=== PATIENT | female | born 1985 | race Two or more races ===

== ENCOUNTER → 2020-08-18 15:29 | Outpatient (BNVA) | payer OTHER, SELFPAY | PROVIDERS: PCP Internal Medicine; Referring Provider Internal Medicine; Visit Provider Advanced Practice Midwife | DX: Z30.09 Encounter for other general counseling and advice on contraception (principal) | CPT/HCPCS: 99212 ==

== ENCOUNTER → 2020-09-09 13:22 | Outpatient (BNVA) | payer OTHER, SELFPAY | PROVIDERS: PCP Internal Medicine; Visit Provider Advanced Practice Midwife | DX: Z76.89 Persons encountering health services in other specified circumstances (principal) ==

== ENCOUNTER → 2020-09-24 15:05 | Outpatient (BNVA) | payer OTHER, SELFPAY | PROVIDERS: PCP Internal Medicine; Referring Provider Internal Medicine; Visit Provider Internal Medicine | DX: Z76.89 Persons encountering health services in other specified circumstances (principal) ==

== ENCOUNTER 2020-10-07 11:11 | Outpatient (REF) | payer OTHER, SELFPAY | END 2020-10-07 11:12 | disposition home or self-care (01) | LOC: HO.LAB 11:11 | PROVIDERS: Visit Provider Internal Medicine | DX: Z20.828 Contact with and (suspected) exposure to other viral communicable diseases (principal) | CPT/HCPCS: C9803; U0003 ==

== ENCOUNTER 2020-10-07 11:32 | Emergency (ER) | payer OTHER, SELFPAY ==
--- NOTE | 2020-10-07 11:51 | ED.GENADULT ---
HPI - General Adult General Chief complaint: General Medical Stated complaint: Covid symptoms Time Seen by Provider: 10/07/20 11:51 Source: patient Mode of arrival: ambulatory Limitations: no limitations History of Present Illness HPI narrative: just had COVID test at our drive [place] site, here because she is worried they have COVID MD complaint: body aches, nausea, exposed to COVID from family Onset (ago): week(s) (2) Severity: mild Quality: aching Pain Consistency: constant Relieving factors: none Exacerbating factors: none Associated symptoms: fever/chills, loss of appetite, malaise and nausea/vomiting Related Data Home Medications Medication Instructions Recorded Confirmed omeprazole 20 mg capsule,delayed 20 mg PO BID 08/26/20 09/24/20 release vitamin with calcium 1 tab PO BEDTIME 09/24/20 09/24/20 no.72-iron 27 mg-folic acid 1 mg tablet Previous Rx's Medication Instructions Recorded prenat.vits,carlin,[id number] 1 tab PO BEDTIME 30 Days #30 tab 08/26/20 ondansetron 4 mg PO Q8H PRN #20 tab 10/07/20 Allergies Allergy/AdvReac Type Severity Reaction Status Date / Time morphine [MORPHINE] Allergy Unknown HIVES Verified 09/24/20 15:14 oxycodone [OXYCODONE] Allergy Unknown HIVES Verified 09/24/20 15:14 Review of Systems Review of Systems: Constitutional : positive Fever, positive Chills, positive fatigue, positive Malaise ENT/Mouth : no sore throat, no runny nose Eyes: No Discharge Cardiovascular : No Chest Pain, No SOB Respiratory : No Cough, No Sputum Gastrointestinal : No Nausea, No Vomiting, No Diarrhea Genitourinary : No Dysuria, No Urinary Frequency Musculoskeletal : positive Myalgia Skin : No rash Neuro : No Headache PMFSH Past Medical History Attestation statement: The following information was validated with the patient. Medical History Depression Goiter History of gestational diabetes History of placenta abruption History of pre-eclampsia Subclinical hyperthyroidism Vitamin D deficiency Surgical History H/O shoulder surgery Family History Family History Father Heart attack HTN (hypertension) CVD (cardiovascular disease) Mother HTN (hypertension) Social History Social History Alcohol intake: current Alcohol intake frequency: a few times a month Smoking Status: Never smoker Advance Directives: No Advance Directives Information Provided: Yes Physical Exam Vital Signs: Appearance: Alert. Oriented X3. No acute distress. Eyes: Pupils equal, round and reactive to light. ENT: Pharynx normal. Neck: Normal inspection. Neck supple. CVS: Normal heart rate and rhythm. Pulses normal. Respiratory: No respiratory distress. Breath sounds normal. Abdomen: Soft and non-tender. Skin: Skin warm and dry. Normal skin color. Normal skin turgor. Extremities: No lower extremity edema. No calf ttp Neuro: Oriented X 3. No motor deficit. No sensory deficit. Medical Decision Making MDM Narrative Medical decision making narrative: 34 yo not toxic, no hypoxia clear lungs, just had COVID test given expectant course nausea medications and work note Discharge Plan Discharge Clinical Impression: Acute viral syndrome Patient Disposition: Home, Self-Care Instructions: Viral Syndrome (ED) Additional Instructions: return to ED for any worsening symptoms or concerns you were tested for COVID we will call you with results in 2 to 4 days, wear a mask, socially distance Prescriptions: New ondansetron 4 mg tablet,disintegrating 4 mg PO Q8H PRN (Reason: nausea and vomiting) Qty: 20 RF: 0 No Action prenat.vits,carlin,[id number] Tablet 1 tab PO BEDTIME 30 Days Qty: 30 RF: 11 Vitamin Plus Low Iron 27 mg iron- 1 mg tablet 1 tab PO BEDTIME RF: 0 omeprazole 20 mg capsule,delayed release(DR/EC) 20 mg PO BID RF: 0 Stand Alone Forms: Work/School Release
== END 2020-10-07 12:35 | disposition home or self-care (01) ==
PROVIDERS: Emergency Provider Emergency Medicine
DX: B34.9 Viral infection, unspecified (principal); M79.10 Myalgia, unspecified site; R11.0 Nausea; Z20.828 Contact with and (suspected) exposure to other viral communicable diseases
CPT/HCPCS: 99281; 99283

== ENCOUNTER → 2020-10-21 11:33 | Outpatient (BNVA) | payer OTHER, SELFPAY | PROVIDERS: PCP Internal Medicine; Visit Provider Advanced Practice Midwife ==

== ENCOUNTER 2020-11-20 15:02 | Outpatient (REF) | payer OTHER, SELFPAY ==
[2020-11-29 05:57] LABS: HPV mRNA E6/E7 rflx Not Detected (Not Detected)
== END 2020-11-20 15:03 | disposition home or self-care (01) ==
LOC: HO.LAB 15:02
PROVIDERS: PCP Internal Medicine; Visit Provider Advanced Practice Midwife
DX: Z01.419 Encounter for gynecological examination (general) (routine) without abnormal findings (principal); N89.8 Other specified noninflammatory disorders of vagina
CPT/HCPCS: 36415; 87624; 88142

== ENCOUNTER 2020-11-28 14:10 | Outpatient (REF) | payer OTHER, SELFPAY ==
--- NOTE | 2020-11-28 14:15 | XR_ITS ---
EXAMINATION: XR SHOULDER, RIGHT CLINICAL INFORMATION: Right shoulder pain. COMPARISON: None TECHNIQUE: AP external rotation, Grashey, scapular Y, and axillary views of the right shoulder. FINDINGS: No acute fracture or dislocation. No joint space narrowing or marginal osteophytes. Postsurgical change related to an orthopedic anchor within the anterior glenoid. No abnormal soft tissue calcification. XR/XR shoulder RT min 2V IMPRESSION: No acute osseous abnormality.
== END 2020-11-28 14:11 | disposition home or self-care (01) ==
LOC: HO.XRAY 14:10
PROVIDERS: PCP Internal Medicine; Visit Provider Physician Assistant
DX: M75.81 Other shoulder lesions, right shoulder (principal)
CPT/HCPCS: 73030; 99202

== ENCOUNTER 2020-12-13 11:51 | Emergency (ER) | payer OTHER, SELFPAY ==
--- NOTE | ~2020-12-13 | US_ITS ---
EXAMINATION: OBSTETRIC ULTRASOUND - FIRST TRIMESTER CLINICAL INFORMATION: Abdominal pain. Spotting. LMP: 10/28/2020 COMPARISON: None TECHNIQUE: Transabdominal imaging of the uterus was performed utilizing bedoya scale and color doppler technique, with m-mode imaging. FINDINGS: There is a well-formed intrauterine gestational sac containing a single fetus with a crown-rump length of 5.4 mm corresponding to a gestational age of 6 weeks, 3 days. cardiac activity detected at 121 bpm. Normal yolk sac present. Tiny subchorionic hematoma present along the anterior fundal chorion measuring 1.0 x 0.9 x 0.3 cm. Ovaries are normal in size and appearance measuring 2.5 x 1.7 x 1.9 cm on the right and 2.9 x 1.4 x 2.0 cm on the left. There is a 1.7 cm corpus luteum within the right ovary. No free fluid. US/US OB <= 14 weeks fetus IMPRESSION: * Single live intrauterine fetus with estimated gestational age by ultrasound of 6 weeks 3 days, for an estimated date of delivery 08/05/2021. * Tiny subchorionic hematoma
[2020-12-13 12:17] VITALS: BP 114/73; PULSE 76; RESP 20; TEMP 36.7; O2SAT 99; BMI 20.7
--- NOTE | 2020-12-13 12:57 | ED.NAVMDI ---
HPI - Nausea/Vomiting/Diarrhea General Chief complaint: Nausea/Vomiting/Diarrhea Stated complaint: vomiting - 2.5 months preg Time Seen by Provider: 12/13/20 12:53 Source: patient Mode of arrival: ambulatory Limitations: no limitations History of Present Illness HPI Narrative: 35 y/o , hx preeclampsia, hx asthma, hx panic attacks who presents with 4 days of intractable nausea and vomiting. She has been trying to eat and drink small amounts but she has had several episodes of vomiting every day and can't keep things down. She also reports intermittent diffuse abdominal pain and light spotting for the last 3 days. She has not been evaluated by her HAND [facility]MOND BLANCHER as of yet. She has been taking SL Zofran with minimal relief. She denies fever, chills, SOB, chest pain. No RUQ pain. MD elicited complaint: nausea and vomiting Onset (ago): day(s) (4) Description of vomiting: watery and bilious Associated nausea: Yes Associated abdominal pain: Yes Location of pain: diffuse Radiation: diffuse Pain consistency: intermittent Severity: mild Quality: aching Exacerbating factors: vomiting Relieving factors: none Associated symptoms: denies other symptoms Related Data Home Medications Medication Instructions Recorded Confirmed omeprazole 20 mg capsule,delayed 20 mg PO BID 08/26/20 11/12/20 release Previous Rx's Medication Instructions Recorded ondansetron HCl [Zofran] 4 mg PO Q8H PRN #15 tab 12/13/20 promethazine 25 mg HI Q6H PRN #1 ea 12/13/20 Allergies Allergy/AdvReac Type Severity Reaction Status Date / Time morphine [MORPHINE] Allergy Unknown HIVES Verified 12/13/20 12:20 oxycodone [OXYCODONE] Allergy Unknown HIVES Verified 12/13/20 12:20 Review of Systems Review of Systems: Constitutional: No Fever, No Chills ENT/Mouth: No sore throat, No Rhinorrhea, No Swallowing Difficulty Eyes: No Eye Pain, No Swelling, No Redness Cardiovascular: No Chest Pain, No SOB, No Orthopnea, No Edema Respiratory: No Cough, No Sputum, No Wheezing, No dyspnea Gastrointestinal: + Nausea, + Vomiting, No Diarrhea, + abdominal Pain Genitourinary: No Dysuria, No Urinary Frequency, No Hematuria Musculoskeletal: No joint pain, No Myalgias Skin: No Skin Lesions, No rash Neuro: No Weakness, No Numbness, No Dizziness, No Headache Psych: + Anxiety/Panic, No Depression Heme/Lymph: No Bruising, No Lymphadenopathy Endocrine: No Polyuria, No Polydipsia Gastrointestinal: Gastrointestinal: Reports nausea PMFSH Past Medical History Medical History Depression Goiter History of gestational diabetes History of placenta abruption History of pre-eclampsia Right shoulder pain Subclinical hyperthyroidism Vitamin D deficiency Surgical History H/O shoulder surgery Family History Family History Father Heart attack HTN (hypertension) CVD (cardiovascular disease) Mother HTN (hypertension) Social History Social History Alcohol intake: current Alcohol intake frequency: does not drink Smoking Status: Never smoker Smoked in Last 30 Days: No Use of substances other than those prescribed or required for medical reasons: No Substance Use Type: Marijuana Advance Directives: No Advance Directives Information Provided: No Physical Exam Vital Signs: Vital Signs: Last Vital Signs Temp 97.7 F 12/13/20 16:10 Pulse 71 12/13/20 16:10 Resp 18 12/13/20 16:10 BP 93/50 L 12/13/20 16:10 Pulse Ox 100 12/13/20 16:10 Body Mass Index 20.7 Appearance: Alert. Oriented X3. Anxious, dry heaving, appears uncomfortable. Eyes: Pupils equal, round and reactive to light. ENT: Pharynx normal. Neck: Normal inspection. Neck supple. CVS: Normal heart rate and rhythm. Pulses normal. Respiratory: No respiratory distress. Breath sounds normal. Abdomen: Soft with mild diffuse tenderness, negative Guadarrama's sign. Normal +BS x4. Nonpalpable uterus. Pelvic exam deferred. Skin: Skin warm and dry. Normal skin color. Normal skin turgor. No rashes. Extremities: No lower extremity edema. Neuro: Oriented X 3. No motor deficit. No sensory deficit. Course Course Course Narrative: 35 y/o female who is 7 weeks presents with intractable N/V x4 days, abdominal pain and slight spotting starting 3 days ago. Described as light pink, no cramping or passage of clots or tissue. Labs, IVF and antiemetic ordered. Will monitor closely. Reevaluation(s) Reevaluation #1: Significant improvement after IV zofran and benadryl. She is tolerating PO. Lab workup is unremarkable. Pelvic U/S show IUP 6 weeks 3 days small subchorionic hematoma. She will follow up with her OB next week. She is stable for discharge with trial of HI phenergan. MDM - Nausea/Vomiting/Diarrhea Lab Data Result diagrams: 12/13/20 13:45 12/13/20 13:45 Labs: Lab Results 12/13/20 12/13/20 12/13/20 Range/Units 13:45 13:45 13:45 WBC 8.5 (4.8-10.8) X10*3/uL RBC 4.41 (4.20-5.50) X10*6/uL Hgb 13.8 (12.0-16.0) g/dl Hct 41.1 (37-47) % MCV 93.2 (80-98) fL MCH 31.3 (27.0-33.0) pg MCHC 33.6 (31.0-35.0) g/dl RDW 12.1 (11.0-16.0) % Plt Count 235 (160-400) X10*3/uL MPV 9.5 (9.4-12.3) fL Immature Gran % (Auto) 0.2 (0.0-0.4) % Neut % (Auto) 87.6 H (45-73) % Lymph % (Auto) 8.8 L (20-40) % Tompkins % (Auto) 3.2 (2-11) % Eos % (Auto) 0.0 (0-4) % Baso % (Auto) 0.2 (0-2) % Lymph # (Auto) 0.8 L (1.2-4.9) X10*3/uL Tompkins # (Auto) 0.3 (0.1-1.2) X10*3/uL Eos # (Auto) 0.0 (0.0-0.4) X10*3/uL Baso # (Auto) 0.0 (0.0-0.2) X10*3/uL Abs Immat Gran (auto) 0.02 (0.00-0.03) X10*3/uL Absolute Neuts (auto) 7.5 (2.0-8.3) X10*3/uL Absolute Nucleated RBC 0.000 (0.0-0.012) X10*3/uL Nucleated RBC % (auto) 0.0 (0.0-0.2) /100WBC Hold Blue Top SEE NOTE Sodium 141 (135-145) mmol/L Potassium 3.4 (3.3-5.1) mmol/L Chloride 105 (96-108) mmol/L Carbon Dioxide 24 (22-29) mmol/L Anion Gap 15 (12-20) BUN 9 (9-16) mg/dL Creatinine 0.67 (0.5-1.4) mg/dL Estim Creat Clear Calc 105.8 Estimated GFR > 60 Random Glucose 97 (60-115) mg/dL Calcium 9.8 (8.4-10.2) mg/dL Magnesium 2.0 (1.6-2.6) mg/dL Total Bilirubin 0.5 (0.0-1.0) mg/dL Direct Bilirubin 0.2 (0.0-0.5) mg/dL AST 17 (5-31) U/L ALT 23 (0-31) U/L Alkaline Phosphatase 30 L (39-117) U/L Total Protein 7.7 (6.5-8.0) g/dL Albumin 4.9 (3.5-5.0) g/dL Lipase (8-78) U/L Beta HCG, Quant 04525 mIU/mL Urine Color Urine Appearance Urine pH (5.0-8.0) Ur Specific Newberry (1.005-1.025) Urine Protein (NEG-TRACE) MG/DL Urine Glucose (UA) (NEG) MG/DL Urine Ketones (NEG) MG/DL Urine Blood (NEG) Urine Nitrite (NEG) Ur Leukocyte Esterase (NEG) Urine Test (NEGATIVE) 12/13/20 12/13/20 Range/Units 13:45 15:27 WBC (4.8-10.8) X10*3/uL RBC (4.20-5.50) X10*6/uL Hgb (12.0-16.0) g/dl Hct (37-47) % MCV (80-98) fL MCH (27.0-33.0) pg MCHC (31.0-35.0) g/dl RDW (11.0-16.0) % Plt Count (160-400) X10*3/uL MPV (9.4-12.3) fL Immature Gran % (Auto) (0.0-0.4) % Neut % (Auto) (45-73) % Lymph % (Auto) (20-40) % Tompkins % (Auto) (2-11) % Eos % (Auto) (0-4) % Baso % (Auto) (0-2) % Lymph # (Auto) (1.2-4.9) X10*3/uL Tompkins # (Auto) (0.1-1.2) X10*3/uL Eos # (Auto) (0.0-0.4) X10*3/uL Baso # (Auto) (0.0-0.2) X10*3/uL Abs Immat Gran (auto) (0.00-0.03) X10*3/uL Absolute Neuts (auto) (2.0-8.3) X10*3/uL Absolute Nucleated RBC (0.0-0.012) X10*3/uL Nucleated RBC % (auto) (0.0-0.2) /100WBC Hold Blue Top Sodium (135-145) mmol/L Potassium (3.3-5.1) mmol/L Chloride (96-108) mmol/L Carbon Dioxide (22-29) mmol/L Anion Gap (12-20) BUN (9-16) mg/dL Creatinine (0.5-1.4) mg/dL Estim Creat Clear Calc Estimated GFR Random Glucose (60-115) mg/dL Calcium (8.4-10.2) mg/dL Magnesium (1.6-2.6) mg/dL Total Bilirubin (0.0-1.0) mg/dL Direct Bilirubin (0.0-0.5) mg/dL AST (5-31) U/L ALT (0-31) U/L Alkaline Phosphatase (39-117) U/L Total Protein (6.5-8.0) g/dL Albumin (3.5-5.0) g/dL Lipase 15 (8-78) U/L Beta HCG, Quant mIU/mL Urine Color YELLOW Urine Appearance CLEAR Urine pH 6.0 (5.0-8.0) Ur Specific Newberry >= 1.030 H (1.005-1.025) Urine Protein TRACE (NEG-TRACE) MG/DL Urine Glucose (UA) NEG (NEG) MG/DL Urine Ketones 40 (NEG) MG/DL Urine Blood NEG (NEG) Urine Nitrite NEG (NEG) Ur Leukocyte Esterase NEG (NEG) Urine Test POSITIVE H (NEGATIVE) Discharge Plan Discharge Clinical Impression: Nausea and vomiting during prior to 22 weeks gestation Patient Disposition: Home, Self-Care Instructions: Hyperemesis Gravidarum (ED), Subchorionic Hemorrhage (ED) Additional Instructions: Your lab workup today was unremarkable. Your Ultrasound today showed a tiny fetus in the uterus at age of 6 weeks, 3 days, estimated delivery date 08/05/21. Your Ultrasound also showed a tiny subchorionic hematoma - this will be monitored by your OB doctor throughout your . Follow up with your OB this week. If you have worsening bleeding or worsening abdominal pain come back to the ER for further evaluation. Use the nausea medications as prescribed. Recommend trial of Unisom nightly and as needed throughout the day. Prescriptions: New ondansetron HCl [Zofran] 4 mg tablet 4 mg PO Q8H PRN (Reason: nausea and vomiting) Qty: 15 RF: 0 promethazine 25 mg suppository 25 mg HI Q6H PRN (Reason: nausea and vomiting) Qty: 1 RF: 0 No Action omeprazole 20 mg capsule,delayed release(DR/EC) 20 mg PO BID RF: 0 Interventions: ED Discharge Assessment Last Done: 12/13/20 16:56 Discharge Date/Time: 12/13/20 16:57
[2020-12-13] MEDS: 0.9 % Sodium Chloride 1,000 ML 999 ML IVCONT (12:58)
[2020-12-13] MEDS: ondansetron HCL 4 MG/2 ML VIAL IVPUSH (12:58)
[2020-12-13] MEDS: diphenhydrAMINE HCL 50 MG/ML VIAL 12.5 MG IVPUSH (13:03)
[2020-12-13 13:36] VITALS: BP 105/59; PULSE 66; RESP 14; TEMP 36.6; O2SAT 100
[2020-12-13 13:50] LABS: Basophils Percent Auto 0.2 % (0-2); Hematocrit 41.1 % (37-47); Hemoglobin 13.8 g/dl (12.0-16.0); Imm Gran Abs Auto 0.02 X10*3/uL (0.00-0.03); Imm Gran Pct Auto 0.2 % (0.0-0.4); Lymphocytes Absolute Auto 0.8 X10*3/uL (1.2-4.9); Lymphocytes Percent Auto 8.8 % (20-40); MANUAL DIFF FLAG NO; Mean Corpuscular HGB Conc 33.6 g/dl (31.0-35.0); Mean Corpuscular Hemoglobin 31.3 pg (27.0-33.0); Mean Corpuscular Volume 93.2 fL (80-98); Mean Platelet Volume 9.5 fL (9.4-12.3); Monocytes Absolute Auto 0.3 X10*3/uL (0.1-1.2); Monocytes Percent Auto 3.2 % (2-11); Neutrophils Absolute Auto 7.5 X10*3/uL (2.0-8.3); Neutrophils Percent Auto 87.6 % (45-73); Platelet Count 235 X10*3/uL (160-400); Red Blood Count 4.41 X10*6/uL (4.20-5.50); Red Cell Distribution Width 12.1 % (11.0-16.0); White Blood Count 8.5 X10*3/uL (4.8-10.8)
[2020-12-13 13:57] VITALS: BP 93/52; PULSE 67; RESP 16; O2SAT 99
--- NOTE | 2020-12-13 13:59 | PC.NURSE ---
PT NO LONGER VOMITING AFTER MEDICATED. REPORTS SHE FEELS IMPROVED.
[2020-12-13 14:24] LABS: Alanine Aminotransferase 23 U/L (0-31); Albumin Level 4.9 g/dL (3.5-5.0); Alkaline Phosphatase 30 U/L (39-117); Anion Gap 15 (12-20); Aspartate Amino Transferase 17 U/L (5-31); Bilirubin Direct 0.2 mg/dL (0.0-0.5); Bilirubin Total 0.5 mg/dL (0.0-1.0); Blood Urea Nitrogen 9 mg/dL (9-16); Calcium 9.8 mg/dL (8.4-10.2); Carbon Dioxide 24 mmol/L (22-29); Chloride 105 mmol/L (96-108); Creatinine Clr Calc Pharmacy 105.8; Estimated Glomerular Filt Rate > 60; Glucose Random 97 mg/dL (60-115); Lipase 15 U/L (8-78); Potassium 3.4 mmol/L (3.3-5.1); Sodium 141 mmol/L (135-145); Total Protein 7.7 g/dL (6.5-8.0)
--- NOTE | 2020-12-13 14:32 | PC.NURSE ---
PT HAS BEEN TOLERATING WATER AND GINGERALE. POTASSIUM REPLACEMENT ADMINISTERED TO PT PO TO DRINK.
[2020-12-13] MEDS: Potassium Chloride Packet 20 MEQ PACKET 40 MEQ PO (14:33)
--- NOTE | 2020-12-13 15:25 | PC.NURSE ---
pt only able to drink a small amount of potassium. states it made her feel nauseous, no vomiting. pt providing urine sample at this time.
[2020-12-13 15:44] LABS: Glucose Urine UA NEG (NEG); Leukocyte Esterase Urine NEG (NEG); Nitrite Urine NEG (NEG); Specific Gravity - Urine >= 1.030 (1.005-1.025); Urine Blood NEG (NEG); Urine Ketones 40 MG/DL (NEG); Urine Protein TRACE MG/DL (NEG-TRACE)
[2020-12-13 15:51] LABS: Appearance Urine CLEAR; Color Urine YELLOW
[2020-12-13 16:10] VITALS: BP 93/50; PULSE 71; RESP 18; TEMP 36.5; O2SAT 100
[2020-12-13 16:28] LABS: UPreg QC Valid OK; Urine Pregnancy POSITIVE (NEGATIVE)
== END 2020-12-13 16:57 | disposition home or self-care (01) ==
PROVIDERS: Physician Assistant; Emergency Provider Emergency Medicine Emergency Medical Services; PCP Internal Medicine
DX: O21.0 Mild hyperemesis gravidarum (principal); O20.8 Other hemorrhage in early pregnancy; Z3A.01 Less than 8 weeks gestation of pregnancy
CPT/HCPCS: 36415; 76801; 80048; 80076; 81003; 81025; 83690; 83735; 84702; 85025; 96361; 96374; 96375; 99284; J1200; J2405

== ENCOUNTER → 2020-12-16 11:04 | Outpatient (BNVA) | payer OTHER, SELFPAY | PROVIDERS: PCP Internal Medicine; Visit Provider Advanced Practice Midwife | DX: O41.8X10 Other specified disorders of amniotic fluid and membranes, first trimester, not applicable or unspecified (principal); O46.8X1 Other antepartum hemorrhage, first trimester; O21.9 Vomiting of pregnancy, unspecified | CPT/HCPCS: 81025; 99212 ==

== ENCOUNTER 2020-12-22 13:11 | Emergency (ER) | payer OTHER, SELFPAY ==
[2020-12-22 13:17] VITALS: BP 113/54; PULSE 87; RESP 16; TEMP 36.8; O2SAT 100; BMI 20.7
[2020-12-22 20:12] VITALS: BP 102/82; PULSE 104; RESP 18; TEMP 37; O2SAT 99
[2020-12-22 20:29] LABS: MANUAL DIFF FLAG NO
[2020-12-22 20:30] LABS: Basophils Percent Auto 0.1 % (0-2); Hematocrit 37.4 % (37-47); Hemoglobin 13.1 g/dl (12.0-16.0); Imm Gran Abs Auto 0.02 X10*3/uL (0.00-0.03); Imm Gran Pct Auto 0.2 % (0.0-0.4); Lymphocytes Absolute Auto 1.3 X10*3/uL (1.2-4.9); Lymphocytes Percent Auto 13.7 % (20-40); Mean Corpuscular Hemoglobin 31.8 pg (27.0-33.0); Mean Corpuscular Volume 90.8 fL (80-98); Mean Platelet Volume 9.4 fL (9.4-12.3); Monocytes Absolute Auto 0.4 X10*3/uL (0.1-1.2); Monocytes Percent Auto 4.8 % (2-11); Neutrophils Absolute Auto 7.5 X10*3/uL (2.0-8.3); Neutrophils Percent Auto 81.2 % (45-73); Platelet Count 229 X10*3/uL (160-400); Red Blood Count 4.12 X10*6/uL (4.20-5.50); Red Cell Distribution Width 11.5 % (11.0-16.0); White Blood Count 9.2 X10*3/uL (4.8-10.8)
[2020-12-22 20:57] LABS: Alanine Aminotransferase 19 U/L (0-31); Albumin Level 4.6 g/dL (3.5-5.0); Alkaline Phosphatase 30 U/L (39-117); Anion Gap 16 (12-20); Aspartate Amino Transferase 12 U/L (5-31); Bilirubin Direct 0.2 mg/dL (0.0-0.5); Bilirubin Total 0.3 mg/dL (0.0-1.0); Blood Urea Nitrogen 7 mg/dL (9-16); Calcium 9.9 mg/dL (8.4-10.2); Carbon Dioxide 19 mmol/L (22-29); Chloride 105 mmol/L (96-108); Creatinine Clr Calc Pharmacy 122.3; Estimated Glomerular Filt Rate > 60; Glucose Random 82 mg/dL (60-115); Lipase 19 U/L (8-78); Potassium 3.7 mmol/L (3.3-5.1); Sodium 136 mmol/L (135-145); Total Protein 7.2 g/dL (6.5-8.0)
== END 2020-12-22 21:29 | disposition left against medical advice (07) ==
PROVIDERS: Emergency Provider Emergency Medicine; PCP Internal Medicine
DX: O21.9 Vomiting of pregnancy, unspecified (principal); Z3A.00 Weeks of gestation of pregnancy not specified
CPT/HCPCS: 36415; 80048; 80076; 83690; 85025; 99283

== ENCOUNTER 2021-10-06 09:12 | Outpatient (REF) | payer OTHER, SELFPAY ==
[2021-10-06 10:11] LABS: Hematocrit 39.6 % (37.0-47.0); Hemoglobin 12.5 g/dl (12.0-16.0); Mean Corpuscular HGB Conc 31.6 g/dl (31.0-35.0); Mean Corpuscular Hemoglobin 27.7 pg (27.0-33.0); Mean Corpuscular Volume 87.6 fL (80.0-98.0); Mean Platelet Volume 9.8 fL (9.4-12.3); Platelet Count 208 X10*3/uL (160-400); Red Blood Count 4.52 X10*6/uL (4.20-5.50); Red Cell Distribution Width 19.2 % (11.0-16.0)
[2021-10-06 10:18] LABS: Estimated Average Glucose 94 mg/dL; Hemoglobin A1c % 4.9 %
[2021-10-06 10:57] LABS: TSH reflex Free T4 1.39 uIU/mL (0.32-4.0); Vitamin D 25-OH Total 17.9 ng/mL (>30)
[2021-10-06 11:06] LABS: Alanine Aminotransferase 91 U/L (0-31); Albumin Level 4.5 g/dL (3.5-5.0); Alkaline Phosphatase 49 U/L (39-117); Anion Gap 16 (12-20); Aspartate Amino Transferase 41 U/L (5-31); Bilirubin Total 0.5 mg/dL (0.0-1.0); Blood Urea Nitrogen 15 mg/dL (9-16); Calcium 10.3 mg/dL (8.4-10.2); Carbon Dioxide 18 mmol/L (22-29); Chloride 109 mmol/L (96-108); Cholesterol 241 mg/dL; Estimated Glomerular Filt Rate > 60; Glucose Fasting 89 mg/dL (60-99); HDL Cholesterol 63 mg/dL; Iron 148 mcg/dL (30-160); LDL Cholesterol Calculated 108 mg/dl; Percent Iron Saturation 29 % (15-50); Potassium 4.4 mmol/L (3.3-5.1); Sodium 139 mmol/L (135-145); Total Iron Binding Capacity 507 mcg/dL (228-428); Total Protein 7.6 g/dL (6.5-8.0); Triglycerides 353 mg/dL; Unsaturated Iron Binding 359 ug/dL
== END 2021-10-06 09:13 | disposition home or self-care (01) ==
LOC: HO.LAB 09:12
PROVIDERS: PCP Internal Medicine; Visit Provider Physician Assistant
DX: Z13.220 Encounter for screening for lipoid disorders (principal); D50.9 Iron deficiency anemia, unspecified; E55.9 Vitamin D deficiency, unspecified; E05.90 Thyrotoxicosis, unspecified without thyrotoxic crisis or storm; Z86.32 Personal history of gestational diabetes
CPT/HCPCS: 36415; 80053; 80061; 82306; 83036; 83540; 84443; 85027

== ENCOUNTER 2021-11-12 09:04 | Outpatient (REF) | payer OTHER, SELFPAY ==
--- NOTE | ~2021-11-12 | US_ITS ---
EXAMINATION: US ABDOMEN COMPLETE CLINICAL INFORMATION: Abnormal levels of other serum enzymes. COMPARISON: None. TECHNIQUE: Real-time imaging of the abdominal viscera. FINDINGS: PANCREAS: Normal. ABDOMINAL AORTA: The proximal, mid, and distal segments are normal in caliber. INFERIOR VENA CAVA: Visualized portions are normal. LIVER: The liver contour is enlarged measuring 17.2 cm in length. No focal hepatic lesion. There is increased hepatic echogenicity seen. There is no intrahepatic biliary duct dilatation seen. GALLBLADDER: Gallbladder wall thickness is 0.3 cm. The gallbladder is physiologically distended without evidence of stones, sludge, polyps, wall thickening or pericholecystic fluid. COMMON BILE DUCT: Normal in caliber measuring 0.4 cm in diameter. RIGHT KIDNEY: Normal. No hydronephrosis. No renal calculi or focal parenchymal lesions. The kidney measures 11.0 cm in maximum dimension. LEFT KIDNEY: Normal. No hydronephrosis. No renal calculi or focal parenchymal lesions. The kidney measures 10.4 cm in maximum dimension. SPLEEN: Normal. The spleen measures 7.4 cm in maximum dimension. FREE FLUID: None. US/US abdomen complete IMPRESSION: Mild hepatic steatosis without focal lesion. The rest of the abdominal ultrasound is unremarkable.
== END 2021-11-12 09:05 | disposition home or self-care (01) ==
LOC: HO.US 09:04
PROVIDERS: PCP Internal Medicine; Visit Provider Physician Assistant
DX: R74.8 Abnormal levels of other serum enzymes (principal)
CPT/HCPCS: 76700

== ENCOUNTER → 2022-01-12 14:10 | Outpatient (BNVA) | payer OTHER, SELFPAY | PROVIDERS: PCP Internal Medicine; Visit Provider Advanced Practice Midwife | DX: Z01.419 Encounter for gynecological examination (general) (routine) without abnormal findings (principal); R63.5 Abnormal weight gain | CPT/HCPCS: 99212 ==

== ENCOUNTER 2022-07-03 10:15 | Outpatient (REF) | payer OTHER, SELFPAY ==
[2022-07-03 10:48] LABS: Hematocrit 40.4 % (37.0-47.0); Hemoglobin 13.5 g/dl (12.0-16.0); Mean Corpuscular HGB Conc 33.4 g/dl (31.0-35.0); Mean Corpuscular Hemoglobin 30.8 pg (27.0-33.0); Mean Corpuscular Volume 92.2 fL (80.0-98.0); Mean Platelet Volume 9.8 fL (9.4-12.3); Platelet Count 215 X10*3/uL (160-400); Red Blood Count 4.38 X10*6/uL (4.20-5.50); Red Cell Distribution Width 12.5 % (11.0-16.0); White Blood Count 4.8 X10*3/uL (4.8-10.8)
[2022-07-03 11:42] LABS: Alanine Aminotransferase 22 U/L (0-31); Albumin Level 4.4 g/dL (3.5-5.0); Alkaline Phosphatase 41 U/L (39-117); Anion Gap 13 (12-20); Aspartate Amino Transferase 16 U/L (5-31); Bilirubin Total 0.4 mg/dL (0.0-1.0); Blood Urea Nitrogen 12 mg/dL (9-16); Calcium 9.3 mg/dL (8.4-10.2); Carbon Dioxide 22 mmol/L (22-29); Chloride 106 mmol/L (96-108); Cholesterol 228 mg/dL; Estimated Glomerular Filt Rate > 60; Glucose Fasting 104 mg/dL (60-99); HDL Cholesterol 64 mg/dL; LDL Cholesterol Calculated 133 mg/dl; Potassium 4.4 mmol/L (3.3-5.1); Sodium 137 mmol/L (135-145); Total Protein 7.1 g/dL (6.5-8.0); Triglycerides 157 mg/dL
[2022-07-03 11:53] LABS: TSH reflex Free T4 0.56 uIU/mL (0.32-4.0)
== END 2022-07-03 10:16 | disposition home or self-care (01) ==
LOC: HO.LAB 10:15
PROVIDERS: PCP Internal Medicine; Visit Provider Physician Assistant
DX: E05.90 Thyrotoxicosis, unspecified without thyrotoxic crisis or storm (principal); E78.5 Hyperlipidemia, unspecified
CPT/HCPCS: 36415; 80053; 80061; 84443; 85027

== ENCOUNTER 2023-03-22 10:55 | Outpatient (REF) | payer OTHER, SELFPAY ==
[2023-03-22 13:51] LABS: Hematocrit 41.9 % (37.0-47.0); Hemoglobin 13.7 g/dl (12.0-16.0); Mean Corpuscular HGB Conc 32.7 g/dl (31.0-35.0); Mean Corpuscular Hemoglobin 30.4 pg (27.0-33.0); Mean Corpuscular Volume 92.9 fL (80.0-98.0); Mean Platelet Volume 9.9 fL (9.4-12.3); Platelet Count 216 X10*3/uL (160-400); Red Blood Count 4.51 X10*6/uL (4.20-5.50); Red Cell Distribution Width 12.6 % (11.0-16.0); White Blood Count 4.9 X10*3/uL (4.8-10.8)
[2023-03-22 14:34] LABS: Alanine Aminotransferase 33 U/L (0-31); Albumin Level 4.6 g/dL (3.5-5.0); Alkaline Phosphatase 36 U/L (39-117); Anion Gap 13 (12-20); Aspartate Amino Transferase 18 U/L (5-31); Bilirubin Total 0.5 mg/dL (0.0-1.0); Blood Urea Nitrogen 11 mg/dL (9-16); Calcium 9.5 mg/dL (8.4-10.2); Carbon Dioxide 22 mmol/L (22-29); Chloride 108 mmol/L (96-108); Cholesterol 286 mg/dL; Estimated Glomerular Filt Rate > 60; Glucose Fasting 85 mg/dL (60-99); HDL Cholesterol 68 mg/dL; LDL Cholesterol Calculated 187 mg/dl; Potassium 4.4 mmol/L (3.3-5.1); Sodium 139 mmol/L (135-145); Total Protein 7.1 g/dL (6.5-8.0); Triglycerides 156 mg/dL
[2023-03-23 05:51] LABS: CT PCR NOT DETECTED (Not Detect.); NG PCR NOT DETECTED (Not Detect.)
[2023-03-23 12:04] LABS: BV Int Neg Control Negative (Negative); BV Int Pos Control Positive (Positive)
== END 2023-03-22 10:56 | disposition home or self-care (01) ==
LOC: HO.LAB 10:55
PROVIDERS: Physician Assistant; PCP Internal Medicine; Visit Provider Advanced Practice Midwife
DX: Z01.419 Encounter for gynecological examination (general) (routine) without abnormal findings (principal); E78.2 Mixed hyperlipidemia; R10.2 Pelvic and perineal pain; Z13.1 Encounter for screening for diabetes mellitus; Z20.2 Contact with and (suspected) exposure to infections with a predominantly sexual mode of transmission
CPT/HCPCS: 0353U; 36415; 80053; 80061; 84443; 85027; 87480; 87510; 87660

== ENCOUNTER 2023-03-22 11:27 | Outpatient (REF) | payer OTHER, SELFPAY | END 2023-03-22 11:28 | disposition home or self-care (01) | LOC: HO.LNP 11:27 | PROVIDERS: Visit Provider Advanced Practice Midwife | DX: Z13.89 Encounter for screening for other disorder (principal) ==

== ENCOUNTER 2023-03-30 13:15 | Outpatient (REF) | payer OTHER, SELFPAY ==
--- NOTE | ~2023-03-30 | US_ITS ---
EXAMINATION: US PELVIS CLINICAL INFORMATION: Pelvic and perineal pain. COMPARISON: None available. TECHNIQUE: Ultrasound of the pelvis is performed using both transabdominal and transvaginal transducers along with Doppler. Transvaginal imaging is performed due to inadequate visualization transabdominally. FINDINGS: UTERUS: The uterus is anteverted and measures 8.0 x 3.6 x 4.3 cm. The double wall endometrial thickness is 0.3 mm. Trace fluid is present in the endometrial canal. An IUD is present in good position. The uterus is smooth in contour and has normal myometrial echogenicity. No visible fibroid. ADNEXA: Both ovaries are visualized. There is normal color flow to the adnexa. There is no ovarian torsion. There is no pelvic ascites or fluid collection. Right ovary measures 4.7 x 3.8 x 2.7 cm for a volume of 25.3 mL. A dominant benign follicle is seen measuring 2.6 cm. Left ovary measures 2.8 x 1.6 x 2.2 cm for a volume of 5.2 mL. No free fluid seen. US/US pelvic and transvaginal IMPRESSION: No significant abnormality is seen. An IUD is present in good position.
--- NOTE | ~2023-03-30 | US_ITS ---
EXAMINATION: US SOFT TISSUE HEAD/NECK CLINICAL INFORMATION: Mass and lump, posterior neck. COMPARISON: None available. TECHNIQUE: Ultrasound of the neck soft tissues is performed with high- frequency bedoya-scale imaging and color Doppler. US/US soft tiss head and/or neck FINDINGS/IMPRESSION: Targeted sonographic evaluation in the area of the lump within the posterior neck without discrete mass or organized collection. If this persist, recommend correlation with a CT or MR with IV contrast.
== END 2023-03-30 13:16 | disposition home or self-care (01) ==
LOC: HO.US 13:15
PROVIDERS: PCP Internal Medicine; Visit Provider Obstetrics & Gynecology
DX: Z30.431 Encounter for routine checking of intrauterine contraceptive device (principal); R10.2 Pelvic and perineal pain; R22.1 Localized swelling, mass and lump, neck
CPT/HCPCS: 76536; 76830; 76856

== ENCOUNTER 2023-05-12 14:17 | Outpatient (AMB) | payer OTHER, SELFPAY ==
[2023-05-12 14:23] VITALS: BP 92/64; BMI 29.1
--- NOTE | 2023-05-12 14:23 | MHC.OFFVIS ---
Intake Vital Signs 05/12/23 14:23 Height 5 ft 5 in Weight 175 lb BMI 29.1 BP 92/64 Intake Visit Reasons: Ultra sound follow up Intake Note: The patient agreed to use of a certified medical technician assistant during this encounter. Scribed for BARRON Burnett by Rocío Lemons certified medical technician assistant, on 05/23/2023 at 2:39 pm EST. Allergies morphine [MORPHINE] Allergy (Unknown, Verified 05/12/23 14:24) HIVES oxycodone [OXYCODONE] Allergy (Unknown, Verified 05/12/23 14:24) HIVES HPI HPI Comments History of Present Illness Details She is here to discuss US results regarding pelvic pain along the area of her C/s. Complains of pelvic pain during menses. Has Mirena inserted 8 weeks at [facility] [place]. [facility] Medical History delivery affecting Depression Goiter History of gestational diabetes History of placenta abruption History of pre-eclampsia Pain in pelvis Right shoulder pain Subclinical hyperthyroidism Vitamin D deficiency Surgical History H/O section H/O shoulder surgery Family History Father Heart attack, Onset Age: 55 HTN (hypertension) CVD (cardiovascular disease) Mother HTN (hypertension) DMII (diabetes mellitus, type 2) Social History Housing: Apartment Alcohol intake: current Alcohol intake frequency: does not drink Alcohol type: wine Patient Tobacco Use Status: Never used Tobacco e-Cigarette/Vaping Use: Never Used Second Hand Smoke Exposure: No Substance Use Type: Marijuana service: No Current occupational status: employed 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 US PELVIS CLINICAL INFORMATION:? Pelvic and perineal pain. COMPARISON: None available. TECHNIQUE: Ultrasound of the pelvis is performed using both transabdominal and transvaginal transducers along with Doppler. Transvaginal imaging is performed due to inadequate visualization transabdominally. FINDINGS: UTERUS: The uterus is anteverted and measures 8.0 x 3.6 x 4.3 cm. The double wall endometrial thickness is 0.3 mm. Trace fluid is present in the endometrial canal. An IUD is present in good position. The uterus is smooth in contour and has normal myometrial echogenicity. No visible fibroid. ADNEXA: Both ovaries are visualized. There is normal color flow to the adnexa. There is no ovarian torsion. There is no pelvic ascites or fluid collection. Right ovary measures 4.7 x 3.8 x 2.7 cm for a volume of 25.3 mL. A dominant benign follicle is seen measuring 2.6 cm. Left ovary measures 2.8 x 1.6 x 2.2 cm for a volume of 5.2 mL. No free fluid seen. US/US pelvic and transvaginal IMPRESSION: No significant abnormality is seen. An IUD is present in good position. ? Assessment & Plan Assessment & Plan (1) Encounter to discuss test results: Code(s): Z71.2 - Person consulting for explanation of examination or test findings Plan: Discussed: US findings of: No significant abnormality is seen. An IUD is present in good position. Discussed possible causes for her pain including scar tissue/adhesions, endometriosis, GI. Monitor pelvic pain. Contact office if pain persists or worsens. All of her questions and concerns were addressed to the best of my ability and shared decision making. She is agreeable to plan of care. (2) Pain in pelvis: Code(s): R10.2 - Pelvic and perineal pain Coding Level of Care Code Est Pt Level 3 (74304) Diagnoses Encounter to discuss test results Z71.2 Pain in pelvis R10.2
== END 2023-05-12 14:43 | disposition home or self-care (01) ==
LOC: HO.HWS 14:17
PROVIDERS: PCP Internal Medicine; Visit Provider Advanced Practice Midwife
DX: Z71.2 Person consulting for explanation of examination or test findings (principal); R10.2 Pelvic and perineal pain
CPT/HCPCS: 99213

== ENCOUNTER → 2023-05-12 14:17 | Outpatient (BNVA) | payer OTHER, SELFPAY | PROVIDERS: PCP Internal Medicine; Visit Provider Advanced Practice Midwife | DX: Z71.2 Person consulting for explanation of examination or test findings (principal); R10.2 Pelvic and perineal pain | CPT/HCPCS: 99212 ==

== ENCOUNTER 2023-06-22 15:24 | Outpatient (AMB) | payer OTHER, SELFPAY ==
--- NOTE | 2023-06-22 15:25 | A.OFFPC_ITS ---
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 Accompanied by: Child Allergies morphine [MORPHINE] Allergy (Unknown, Verified 06/22/23 15:37) HIVES oxycodone [OXYCODONE] Allergy (Unknown, Verified 06/22/23 15:37) HIVES Medication List - Last Reconciled 06/22/23 by Sofia Stephens MD ibuprofen 800 mg PO Q8H PRN levonorgestrel (Mirena) intrauterine omeprazole 20 mg PO DAILY 30 days Tobacco use date assessed: 03/17/23 Dental Screening Dental Screen Date: 06/22/23 Did you have a dental visit in the last 12 months?: Yes Did you have a dental problem in the last 6 months where you did not have access to dental care?: No Was dental information given to patient?: Patient has dentist HPI HPI Comments History of Present Illness Details This is a 37-year-old female that complains of fatigue and tiredness, neck pain and difficulty swallowing solids that started few months ago. She has mild goiter and I will order ultrasound. Had ultrasound of the neck with no significant abnormality. [facility] Medical History delivery affecting Depression Goiter History of gestational diabetes History of placenta abruption History of pre-eclampsia Pain in pelvis Right shoulder pain Subclinical hyperthyroidism Vitamin D deficiency Surgical History H/O section H/O shoulder surgery Family History Father Heart attack, Onset Age: 55 HTN (hypertension) CVD (cardiovascular disease) Mother HTN (hypertension) DMII (diabetes mellitus, type 2) Social History Housing: Apartment Alcohol intake: current Alcohol intake frequency: does not drink Alcohol type: wine Patient Tobacco Use Status: Never used Tobacco e-Cigarette/Vaping Use: Never Used Second Hand Smoke Exposure: No Substance Use Type: Marijuana service: No Current occupational status: employed 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 Bill Coleman, Cintia Eagle, Anand Gamboa and colleagues, with an educational sterling from [employer] Review of Systems Const All systems reviewed & are unremarkable except as noted in HPI and below Eyes Reports no additional complaints, Denies change in vision and Denies other visual disturbances Card Denies chest pain at rest, Denies chest pain with activity, Denies edema, Denies irregular heart rhythm, Denies claudication, Denies dyspnea, Denies dyspnea on exertion, Denies orthopnea, Denies paroxysmal nocturnal dyspnea and Denies slow heart rate Resp Denies cough, Denies dyspnea and Denies dyspnea on exertion GI Denies abdominal pain, Denies change in bowel habits, Denies excessive flatus, Denies nausea and Denies vomiting Denies urinary incontinence, Denies urinary hesitancy and Denies urinary urgency Musc Denies abnormal gait, Denies atrophy, Denies deformity and Denies limited range of motion Skin/Breast Denies bleeding lesions, Denies changing lesions and Denies rash Neuro Denies abnormal gait and Denies lack of coordination Physical exam (Primary Care) Vital Signs: Last Vital Signs BP 120/82 06/22/23 15:26 BMI result Body Mass Index 29.6 Tobacco/Smoking Status: Tobacco use Status Tobacco use date assessed 03/17/23 06/22/23 15:30 Patient Tobacco Use Status Never used Tobacco 06/22/23 15:30 Tobacco use type 12/03/22 11:40 e-Cigarette/Vaping Use Never Used 06/22/23 15:30 Thrive Assessment: Date of Thrive Assessment Date Thrive assessed 03/17/23 06/22/23 15:30 Eyes General: appearance normal, both eyes and all related structures Eyelids: Yes eyelids normal Conjunctivae: conjunctivae normal Neck Neck: Yes normal visual inspection and Yes supple Thyroid: diffusely enlarged Resp Effort & Inspection: normal respiratory effort Auscultation: clear to auscultation bilaterally Cardio Jugular venous distension: no JVD Rate: regular rate Rhythm: regular rhythm Heart sounds: S1 normal heart sound present and S2 normal heart sound present Extrem General: Yes full ROM Assessment and Plan Assessment & Plan (1) Goiter: Code(s): E04.9 - Nontoxic goiter, unspecified Plan: Ultrasound of the thyroid ordered Orders: Orders US thyroid Today E04.9 - Nontoxic goiter, unspecified Free T4 (Free Thyroxine) Today E04.9 - Nontoxic goiter, unspecified Thyroid Stimulating Hormone Today E04.9 - Nontoxic goiter, unspecified Thyroglobulin Antibodies Today E04.9 - Nontoxic goiter, unspecified Thyroid Peroxidase Antibodies Today E04.9 - Nontoxic goiter, unspecified Coding Level of Care Code Est Pt Level 3 (31269) Diagnoses Goiter E04.9 Time Spent (min) 18
[2023-06-22 15:26] VITALS: BP 120/82; BMI 29.6
== END 2023-06-22 15:48 | disposition home or self-care (01) ==
PROVIDERS: PCP Internal Medicine; Visit Provider Internal Medicine
DX: E04.9 Nontoxic goiter, unspecified (principal)
CPT/HCPCS: 99213

== ENCOUNTER 2023-08-12 08:54 | Outpatient (AMB) | payer OTHER, SELFPAY ==
[2023-08-12 10:34] VITALS: BP 110/70; PULSE 72; TEMP 36.8; O2SAT 99; BMI 35.0
--- NOTE | 2023-08-12 10:34 | AM.OFFWIN_ITS ---
Intake Vital Signs 08/12/23 10:34 Height 5 ft Weight 179 lb BMI 35.0 BP 110/70 Blood Pressure Location Lt brachial Position Sitting Pulse 72 Pulse Source Pulse Oximeter Temp 98.3 F Pulse Oximetry (%) 99 Oxygen Delivery Method Room Air Intake Visit Reasons: EP Sore Throat (MASKED) Intake Note: pt is here today for EP sore throat Patient Tobacco Use Status: Never used Tobacco Allergies morphine [MORPHINE] Allergy (Unknown, Verified 08/12/23 10:35) HIVES oxycodone [OXYCODONE] Allergy (Unknown, Verified 08/12/23 10:35) HIVES Do you need a note to return to daycare/school/sports/work: No HPI HPI Comments History of Present Illness Details This is a 37-year-old female who presents to the office today for sick visit. Patient complaining of sore throat x9 days. patient states her symptoms been persistent and worsening. She reports subjective fevers but has not had a measured fever. She reports odynophagia but denies any throat swelling or trouble swallowing. [facility] Medical History delivery affecting Depression Goiter History of gestational diabetes History of placenta abruption History of pre-eclampsia Pain in pelvis Right shoulder pain Subclinical hyperthyroidism Vitamin D deficiency Surgical History H/O section H/O shoulder surgery Family History Father Heart attack, Onset Age: 55 HTN (hypertension) CVD (cardiovascular disease) Mother HTN (hypertension) DMII (diabetes mellitus, type 2) Social History Housing: Apartment Alcohol intake: current Alcohol intake frequency: does not drink Alcohol type: wine Patient Tobacco Use Status: Never used Tobacco e-Cigarette/Vaping Use: Never Used Second Hand Smoke Exposure: No Substance Use Type: Marijuana service: No Current occupational status: employed 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 Current occupational exposures/hazards: No Sexual orientation: Straight/Heterosexual Gender identity: Female Cognitive needs: No Hearing needs: No Vision needs: Yes Female Reproductive History Menstrual Age of Menarche: 18 Review of Systems Const All systems reviewed & are unremarkable except as noted in HPI and below Reports no additional complaints Eyes Reports no additional complaints ENT Reports no additional complaints Card Reports no additional complaints Resp Reports no additional complaints GI Reports no additional complaints Reports no additional complaints Musc Reports no additional complaints Skin/Breast Reports system reviewed and no additional complaints, except as documented Neuro Reports no additional complaints Psych Reports no additional complaints Endo Reports no additional complaints Jda/Lymph Reports no additional complaints Aller/Immun Reports no additional complaints Physical Exam Vital Signs: Last Vital Signs Temp 98.3 F 08/12/23 10:34 Pulse 72 08/12/23 10:34 BP 110/70 08/12/23 10:34 Pulse Ox 99 08/12/23 10:34 Oxygen Delivery Method Room Air 08/12/23 10:34 BMI result Body Mass Index 35.0 Const Other: Vital signs reviewed. Constitutional: Non-toxic appearing. No acute distress. Well-developed and well-nourished. HEENT: Normocephalic and atraumatic. Tympanic membranes without erythema, edema, or bulging bilaterally. External auditory canals without erythema or edema bilaterally. Moist mucous membranes. Significant posterior pharyngeal erythema with scant patchy exudates. No uvular deviation. No peritonsillar mass. Skin: Warm and dry. No rashes or lesions noted. Neck: Full and painless range of motion. Boggy anterior cervical lymphadenopathy. Cardio: Regular rate and rhythm. No murmurs, gallops, or rubs. No lower extremity edema. No JVD. Pulmonary: No respiratory distress. No accessory muscle usage. Clear to auscultation bilaterally without wheezing, crackles, or rhonchi. Gastrointestinal: Soft, nontender, and nondistended in all 4 quadrants. Normoactive bowel sounds in all 4 quadrants. Genitourinary: No CVA tenderness. Musculoskeletal: Normal range of motion in joints throughout the body. No deformity or other signs of injury. Neuro: Alert and oriented x4. Cranial nerves 2-12 grossly intact. No focal deficits appreciated. Psych: Normal mood and affect. Results AMB Rapid Strep AMB Rapid Strep Negative Last Edit by CASI Jay on 08/12/23 10:50 Assessment & Plan Assessment & Plan (1) Pharyngitis: Code(s): J02.9 - Acute pharyngitis, unspecified Plan: This is a 37-year-old female presenting to the office complaining of persistent / worsening sore throat x9 days with subjective fevers. On physical examination, she has significant posterior pharyngeal erythema with scant exudates as well as boggy anterior cervical lymph nodes. Regardless of rapid strep testing results, I will treat patient for presumed streptococcal pharyngitis with p.o. amoxicillin 500 mg twice daily times 10 days. Recommended symptomatic management including rest, increased fluids, advil/tylenol for pain/fever, and over the counter throat lozenges/decongestants. Patient advised to follow up here or go to the emergency room for worsening/persistent symptoms including throat swelling, trouble swallowing, or unilateral neck swelling. Patient verbalized understanding and is agreeable with the plan. Orders: Orders AMB Rapid Strep Screen Today Z13.9 - Encounter for screening, unspecified Medications: New amoxicillin 500 mg PO BID 20 caps 0RF Coding Level of Care Code Est Pt Level 3 (23253) Diagnoses Pharyngitis J02.9
== END 2023-08-12 10:54 | disposition home or self-care (01) ==
PROVIDERS: PCP Internal Medicine; Visit Provider Physician Assistant Medical
DX: J02.9 Acute pharyngitis, unspecified (principal)
CPT/HCPCS: 87880; 99213

== ENCOUNTER 2023-08-12 10:51 | Outpatient (REF) | payer OTHER, SELFPAY ==
[2023-08-12 14:41] LABS: Free T4 (Free Thyroxine) 0.92 ng/dL (0.71-1.85); Thyroid Stimulating Hormone 0.73 uIU/mL (0.32-4.0)
[2023-08-13 11:19] LABS: Thyroglobulin Antibodies <1 IU/mL (< or = 1)
[2023-08-16 05:48] LABS: Thyroid Peroxidase Antibodies <1 IU/mL (<9)
== END 2023-08-12 10:52 | disposition home or self-care (01) ==
LOC: HO.HMGCLDS 10:51
PROVIDERS: PCP Internal Medicine; Visit Provider Internal Medicine
DX: E04.9 Nontoxic goiter, unspecified (principal)
CPT/HCPCS: 36415; 84439; 84443; 86376; 86800

== ENCOUNTER 2023-11-18 10:33 | Outpatient (AMB) | payer OTHER, SELFPAY ==
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
[2023-11-18 12:08] VITALS: BP 110/80; PULSE 60; TEMP 36.6; O2SAT 98; BMI 34.8
== END 2023-11-18 12:53 | disposition home or self-care (01) ==
PROVIDERS: PCP Internal Medicine; Visit Provider Nurse Practitioner Family
DX: S06.0X0A Concussion without loss of consciousness, initial encounter (principal); Z04.3 Encounter for examination and observation following other accident
CPT/HCPCS: 99213

== ENCOUNTER 2023-12-01 13:01 | Outpatient (AMB) | payer OTHER, SELFPAY ==
[2023-12-01 13:05] VITALS: BP 112/70; PULSE 92; TEMP 36.2; O2SAT 98; BMI 35.0
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
== END 2023-12-01 13:56 | disposition home or self-care (01) ==
PROVIDERS: PCP Internal Medicine; Visit Provider Nurse Practitioner Family
DX: M54.16 Radiculopathy, lumbar region (principal)
CPT/HCPCS: 99214

== ENCOUNTER 2023-12-01 13:27 | Outpatient (REF) | payer OTHER, SELFPAY ==
--- NOTE | ~2023-12-01 | XR_ITS ---
EXAMINATION: XR LUMBOSACRAL SPINE CLINICAL INFORMATION: Radiculopathy, lumbar region COMPARISON: None available. TECHNIQUE: Three views of the lumbosacral spine. FINDINGS: There is straightening of the usual lumbar lordosis which can be seen with muscle spasm. The vertebral bodies and posterior elements are normal. The disc spaces are preserved and the vertebral alignment is normal. The paraspinal soft tissues are normal. T-shaped IUD is seen slightly to the left of midline. XR/XR lumbar spine 2-3V IMPRESSION: Muscle spasm.
== END 2023-12-01 13:28 | disposition home or self-care (01) ==
LOC: HO.HMGCX 13:27
PROVIDERS: PCP Internal Medicine; Visit Provider Nurse Practitioner Family
DX: M54.16 Radiculopathy, lumbar region (principal)
CPT/HCPCS: 72100

== ENCOUNTER 2023-12-16 12:51 | Outpatient (AMB) | payer OTHER, SELFPAY ==
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
[2023-12-16 13:10] VITALS: BP 124/86; PULSE 68; RESP 18; O2SAT 99; BMI 29.2
== END 2023-12-16 13:29 | disposition home or self-care (01) ==
PROVIDERS: PCP Internal Medicine; Visit Provider Registered Nurse Emergency
DX: M54.16 Radiculopathy, lumbar region (principal); S39.012A Strain of muscle, fascia and tendon of lower back, initial encounter
CPT/HCPCS: 99204

== ENCOUNTER → 2023-12-16 12:51 | Outpatient (BNVA) | payer OTHER, SELFPAY | PROVIDERS: PCP Internal Medicine; Visit Provider Registered Nurse Emergency ==

== ENCOUNTER 2024-02-03 14:09 | Outpatient (AMB) | payer OTHER, SELFPAY ==
[2024-02-03 14:15] VITALS: BP 116/73; PULSE 80; RESP 16; O2SAT 99; BMI 28.8
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
== END 2024-02-03 15:01 | disposition home or self-care (01) ==
PROVIDERS: PCP Internal Medicine; Visit Provider Registered Nurse Emergency
DX: M54.2 Cervicalgia (principal); M54.16 Radiculopathy, lumbar region; S39.012A Strain of muscle, fascia and tendon of lower back, initial encounter; S46.819A Strain of other muscles, fascia and tendons at shoulder and upper arm level, unspecified arm, initial encounter
CPT/HCPCS: 99214

== ENCOUNTER → 2024-02-03 14:09 | Outpatient (BNVA) | payer OTHER, SELFPAY | PROVIDERS: PCP Internal Medicine; Visit Provider Registered Nurse Emergency ==

== ENCOUNTER 2024-02-15 14:10 | Outpatient (AMB) | payer OTHER, SELFPAY ==
[2024-02-15 14:15] VITALS: BP 112/80; BMI 29.0
--- NOTE | 2024-02-15 14:15 | MHC.PC.OV ---
Vital Signs 02/15/24 14:15 Height 5 ft 5 in Weight 174 lb BMI 29.0 BP 112/80 Blood Pressure Location Lt brachial Position Sitting Intake Visit Reasons: body rash/lingering cough Intake Note: Patient here c/o body rash and lingering cough Disability Benefits Specialist Required: No Accompanied by: Self / Same As Patient Allergies morphine [MORPHINE] Allergy (Unknown, Verified 02/15/24 14:26) HIVES oxycodone [OXYCODONE] Allergy (Unknown, Verified 02/15/24 14:26) HIVES Medication List - Last Reconciled 02/15/24 by Sofia Stephens MD acetaminophen 1,000 mg (2 x 500 mg) PO Q6H PRN cyclobenzaprine 10 mg PO TID PRN diclofenac potassium 50 mg PO BID gabapentin 100 mg PO TID levonorgestrel (Mirena) intrauterine omeprazole 20 mg PO DAILY 30 days Tobacco use date assessed: 02/15/24 Dental Screening Dental Screen Date: 02/15/24 Did you have a dental visit in the last 12 months?: Yes Did you have a dental problem in the last 6 months where you did not have access to dental care?: No Was dental information given to patient?: Patient has dentist HPI HPI Comments History of Present Illness Details This is a 38-year-old female that complains of a rash that has been present for about 2 months. She started working a new job her cats and dogs and [employer] places for the last 6 months. No chest pain or shortness of breath. No fever. [facility] Medical History Gestational diabetes Pain in pelvis delivery affecting Right shoulder pain Subclinical hyperthyroidism Vitamin D deficiency Goiter History of gestational diabetes History of pre-eclampsia Depression History of placenta abruption Surgical History H/O section H/O shoulder surgery Family History Father Heart attack, Onset Age: 55 HTN (hypertension) CVD (cardiovascular disease) Mother HTN (hypertension) DMII (diabetes mellitus, type 2) Social History Housing: Apartment Alcohol intake: current Alcohol intake frequency: does not drink Alcohol type: wine Patient Tobacco Use Status: Never used Tobacco e-Cigarette/Vaping Use: Never Used Second Hand Smoke Exposure: No Substance Use Type: Marijuana service: No Current occupational status: employed 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 1. Little interest or pleasure in doing things: not at all 2. Feeling down, depressed, or hopeless: not at all 3. Trouble falling or staying asleep, or sleeping too much: not at all 4. Feeling tired or having little energy: not at all 5. Poor appetite or overeating: not at all 6. Feeling bad about yourself - or that you are a failure or have let yourself or your family down: not at all 7. Trouble concentrating on things, such as reading the newspaper or watching television: not at all 8. Moving or speaking so slowly that other people could have noticed. Or the opposite - being so fidgety or restless that you have been moving around a lot more than usual: not at all 9. Thoughts that you would be better off or of hurting yourself in some way: not at all Total score: 0 Depression Screening Interpretation: Negative Depression Screening Done: Yes 75403 - PHQ-9 Billing: Yes Source: Developed by Drs. Bill Coleman, Cintia Eagle, Anand Gamboa and colleagues, with an educational sterling from [employer]. Thrive Questionnaire Date Thrive assessed: 02/15/24 I am a: Patient What is your living situation today?: I have a steady place to live Within the past 12 months, did the food you bought not last and you didn't have the money to get more?: Never true Within the past 12 months, did you worry whether your food would run out before you got money to buy more?: Never true Do you have trouble paying for medicines?: No Do you have trouble getting transportation to medical appointments?: No Do you have trouble paying your heating and electricity bill?: No Do you have trouble taking care of your child, family member or friend?: No Do you have trouble with day-to-day activities such as bathing, preparing meals, shopping, managing finances, etc.?: No Are you currently unemployed and looking for a job?: No Are you interested in more education?: No Please select the resources that you would like help with: None Currently or been in a relationship where the following occur: no concerns reported THRIVE Score: 0 AUDIT C Alcohol Use Questionnaire (AUDIT-C) 1. How often do you have a drink containing alcohol?: Monthly or less 2. How many drinks containing alcohol do you have on a typical day when you are drinking?: 1 or 2 3. How often do you have six or more drinks on one occasion?: Never Total Score: 1 NAM-7 AMB Questionnaire NAM-7 Date NAM - 7 assessed: 02/15/24 Feeling nervous, anxious, or on edge: 0 = Not at all Not being able to stop or control worryin = Not at all Worrying too much about different things: 0 = Not at all Trouble relaxin = Not at all Being so restless that it is hard to sit still: 0 = Not at all Becoming easily annoyed or irritable: 0 = Not at all Feeling afraid as if something awful might happen: 0 = Not at all Total NAM-7 score (0-4 normal; 5-9 mild; 10-14 moderate; 15-21 severe): 0 Source: Developed by Drs. Bill Coleman, Cintia Eagle, Anand Gamboa and colleagues, with an educational sterling from [employer]. NAM-7 Assessment Billing NAM-7 Assessment Tool: NAM-7 Assessment 68324 Review of Systems Const All systems reviewed & are unremarkable except as noted in HPI and below Eyes Reports no additional complaints, Denies change in vision and Denies other visual disturbances Card Denies chest pain at rest, Denies chest pain with activity, Denies edema, Denies irregular heart rhythm, Denies claudication, Denies dyspnea, Denies dyspnea on exertion, Denies orthopnea, Denies paroxysmal nocturnal dyspnea and Denies slow heart rate Resp Denies cough, Denies dyspnea and Denies dyspnea on exertion GI Denies abdominal pain, Denies change in bowel habits, Denies excessive flatus, Denies nausea and Denies vomiting Denies urinary incontinence, Denies urinary hesitancy and Denies urinary urgency Skin/Breast Reports rash Physical exam (Primary Care) Vital Signs: Last Vital Signs BP 112/80 02/15/24 14:15 BMI result Body Mass Index 29.0 Tobacco/Smoking Status: Tobacco use Status Tobacco use date assessed 02/15/24 02/15/24 14:20 Patient Tobacco Use Status Never used Tobacco 02/15/24 14:20 Tobacco use type 11/18/23 10:27 e-Cigarette/Vaping Use Never Used 02/15/24 14:20 PHQ-9: PHQ-9 Score PHQ-9: Total score 0 02/15/24 14:31 Depression Screening Interpretation: Negative Thrive Assessment: Date of Thrive Assessment Date Thrive assessed 02/15/24 02/15/24 14:20 Currently or been in a relationship where the following occur: no concerns reported Resp Effort & Inspection: normal respiratory effort Auscultation: clear to auscultation bilaterally Cardio Jugular venous distension: no JVD Rate: regular rate Rhythm: regular rhythm Heart sounds: S1 normal heart sound present and S2 normal heart sound present Skin Rashes: rashes noted Extrem General: Yes full ROM Assessment and Plan Assessment & Plan (1) Rash: Code(s): R21 - Rash and other nonspecific skin eruption Plan: RAST ordered. Refer to an die finisher. Start Cetirizine. Orders: Referrals Allergy & Immunology Referral R21 - Rash and other nonspecific skin eruption Medications: New cetirizine (Allergy Relief (cetirizine)) 10 mg PO DAILY PRN 90 tabs 1RF allergy symptoms 90 days conjugated estrogens 1 appl vaginal 2XW PRN 30 grams 0RF vaginal dryness 30 days Coding Level of Care Code Est Pt Level 3 (69624) Diagnoses Rash R21 Additional Codes NAM-7 Assessment Billing - NAM-7 Assessment Tool: NAM-7 Assessment 80288 ([id number]) Time Spent (min) 19
== END 2024-02-15 14:51 | disposition home or self-care (01) ==
PROVIDERS: PCP Internal Medicine; Visit Provider Internal Medicine
DX: R21 Rash and other nonspecific skin eruption (principal)
CPT/HCPCS: 99213

== ENCOUNTER 2024-02-15 15:00 | Outpatient (REF) | payer OTHER, SELFPAY ==
[2024-02-16 20:48] LABS: Immunoglobulin A 126 mg/dL (47-310); Transglutaminase IgA <1.0 U/mL
== END 2024-02-15 15:01 | disposition home or self-care (01) ==
LOC: HO.LAB 15:00
PROVIDERS: PCP Internal Medicine; Visit Provider Internal Medicine
DX: R21 Rash and other nonspecific skin eruption (principal)
CPT/HCPCS: 36415; 82784; 83003; 86003; 86364

== ENCOUNTER 2024-02-23 14:00 | Outpatient (RCR) | payer OTHER, SELFPAY ==
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
--- NOTE | 2024-02-23 14:50 | MHC.PT.DC ---
[facility] [place] Office [place] Office [place] Office [address] Anaya Mao [address] [phone] F: [phone] F: [phone] F: [phone] F: [phone] Physical Therapy Discharge Report Diagnosis: strain of muscle, fascia and tendon of lower back Date of Surgery: n/a Date of Evaluation: 01/16/24 Date of Discharge: 02/23/24 Treatments to Date: 9 Cancellations to Date: 2 No Shows to Date: 0 Discharge Status: Recommend MD Follow-up Discharge Summary: 02/23/2024: She continues to feel no change since start of care. Pain is still very high and she continues to be very limited in her function as a result. We have tried a variety of interventions in PT all without success and no significant change in pain. At this time max benefits of PT have been provided and it is no longer to continue with skilled PT as she is not making progress. I discussed with her my recommendation to follow up with her doctor for possibility of more imaging to evaluate the source of her pain. She is in agreement with d/c today and plan. Electronically signed by: Elysia Tse, PT, DPT, ATC Please sign and return to therapist. Thank you for your referral.
== END 2024-02-23 14:51 | disposition home or self-care (01) ==
LOC: HO.PTCHIC 14:00
PROVIDERS: PCP Internal Medicine; Visit Provider Registered Nurse Emergency
DX: S39.012D Strain of muscle, fascia and tendon of lower back, subsequent encounter (principal); M54.16 Radiculopathy, lumbar region
CPT/HCPCS: 97014; 97110; 97140; 97161

== ENCOUNTER 2024-02-23 14:52 | Outpatient (REF) | payer OTHER, SELFPAY ==
--- NOTE | ~2024-02-23 | XR_ITS ---
EXAMINATION: XR CERVICAL SPINE CLINICAL INFORMATION: Cervicalgia COMPARISON: None available. TECHNIQUE: 4 views of the cervical spine, inclusive of flexion and extension views, were obtained. FINDINGS: There is no fracture or subluxation. Prevertebral soft tissues are within normal limits. There is reversal of the usual cervical lordosis. There are height of vertebral bodies and disc spaces is well-maintained. There is mild retrolisthesis of C2 with respect to C3 on the extension view. There is no subluxation on the flexion view. XR/XR cervical spine w flex/ext IMPRESSION: 1. Reversal of the usual cervical lordosis. 2. Mild retrolisthesis of C2 with respect to C3 on the extension view.
== END 2024-02-23 14:53 | disposition home or self-care (01) ==
LOC: HO.HMGCX 14:52
PROVIDERS: PCP Internal Medicine; Visit Provider Registered Nurse Emergency
DX: M54.2 Cervicalgia (principal)
CPT/HCPCS: 72052

== ENCOUNTER 2024-03-22 14:00 | Outpatient (RCR) | payer OTHER, SELFPAY ==
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
--- NOTE | 2024-04-05 15:06 | MHC.PT.DC ---
[facility] [place] Office [place] Office [place] Office [address] Anaya Mao [address] [phone] F: [phone] F: [phone] F: [phone] F: [phone] Physical Therapy Discharge Report Diagnosis: cervicalgia Date of Surgery: n/a Date of Evaluation: 03/15/24 Date of Discharge: 04/05/24 Treatments to Date: 2 Cancellations to Date: 7 No Shows to Date: 0 Discharge Status: Patient Elected to Stop Discharge Summary: Pt self d/c from skilled PT. Electronically signed by: Elysia Tse, PT, DPT, ATC Please sign and return to therapist. Thank you for your referral.
== END 2024-04-05 15:06 | disposition home or self-care (01) ==
LOC: HO.PTCHIC 14:00
PROVIDERS: PCP Internal Medicine; Visit Provider Registered Nurse Emergency
DX: M54.2 Cervicalgia (principal)
CPT/HCPCS: 97110; 97161

== ENCOUNTER 2024-03-28 15:14 | Outpatient (REF) | payer OTHER, SELFPAY ==
[2024-03-31 08:32] LABS: TS Negative Control Passed; TS Panel A 0; TS Panel B 0; TS Positive Control Passed; TSpotTB Negative (Negative)
== END 2024-03-28 15:15 | disposition home or self-care (01) ==
LOC: HO.LAB 15:14
PROVIDERS: PCP Internal Medicine; Visit Provider Internal Medicine
DX: Z11.1 Encounter for screening for respiratory tuberculosis (principal)
CPT/HCPCS: 36415; 86481

== ENCOUNTER 2024-04-06 12:44 | Outpatient (REF) | payer OTHER, SELFPAY ==
--- NOTE | ~2024-04-06 | MR_ITS ---
EXAMINATION: MR LUMBAR SPINE WITHOUT CONTRAST CLINICAL INFORMATION: Lumbar radiculopathy. COMPARISON: Lumbar spine radiographs from 12/01/2023. TECHNIQUE: MRI of the lumbar spine was obtained using routine sequences without contrast. FINDINGS: Minimal degenerative retrolisthesis of L5 on S1. Otherwise, normal anatomic alignment. Mild degenerative disc disease at L5-S1. Associated minimal Modic type I discogenic edema. No additional suspicious marrow edema. The vertebral body heights are well-maintained. The conus medullaris terminates at the level of L1. The distal spinal cord is normal in appearance. Moderate subcutaneous edema within the posterior soft tissues the back from L1-L5. No additional significant abnormalities of the paraspinal musculature. Limited evaluation of the intra-abdominal structures without significant abnormalities. The abdominal aorta is of normal contour and caliber. AXIAL SPINAL LEVELS: T12-L1: Normal annular contour. There is mild bilateral facet joint arthropathy. There is no neural foraminal stenosis. There is no spinal canal stenosis. L1-L2: Normal annular contour. There is mild bilateral facet joint arthropathy. There is no neural foraminal stenosis. There is no spinal canal stenosis. L2-L3: Normal annular contour. There is mild bilateral facet joint arthropathy. There is no neural foraminal stenosis. There is no spinal canal stenosis. L3-L4: Normal annular contour. There is mild right and no left facet joint arthropathy. There is no neural foraminal stenosis. There is no spinal canal stenosis. L4-L5: Shallow diffuse disc bulge. There is mild bilateral facet joint arthropathy. There is mild bilateral neural foraminal stenosis. There is no spinal canal stenosis. L5-S1: Mild diffuse disc bulge with superimposed central/left subarticular disc protrusion. There is mild bilateral facet joint arthropathy. There is moderate left and mild right neural foraminal stenosis. There is no spinal canal stenosis. MR/MR lumbar spine wo con IMPRESSION: Mild multilevel degenerative spondyloarthropathy of the lumbar spine as described in detail above. Most notably, there is moderate left-sided neural foraminal stenosis at L5-S1. No additional overt spinal canal stenosis or nerve root compression.
== END 2024-04-06 12:45 | disposition home or self-care (01) ==
LOC: HO.MRI 12:44
PROVIDERS: PCP Internal Medicine; Visit Provider Registered Nurse Emergency
DX: M54.16 Radiculopathy, lumbar region (principal)
CPT/HCPCS: 72148

== ENCOUNTER 2024-08-15 14:28 | Outpatient (AMB) | payer OTHER, SELFPAY ==
[2024-08-15 14:33] VITALS: BP 142/85; PULSE 63; O2SAT 100; BMI 28.1
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
== END 2024-08-15 14:53 | disposition home or self-care (01) ==
PROVIDERS: PCP Internal Medicine; Visit Provider Registered Nurse Emergency
DX: M54.2 Cervicalgia (principal); M54.16 Radiculopathy, lumbar region; S39.012A Strain of muscle, fascia and tendon of lower back, initial encounter; S46.819A Strain of other muscles, fascia and tendons at shoulder and upper arm level, unspecified arm, initial encounter
CPT/HCPCS: 99213; G2211

== ENCOUNTER → 2024-08-15 14:28 | Outpatient (BNVA) | payer OTHER, SELFPAY | PROVIDERS: PCP Internal Medicine; Visit Provider Registered Nurse Emergency ==

== ENCOUNTER 2024-08-20 08:57 | Outpatient (AMB) | payer OTHER, SELFPAY ==
--- NOTE | 2024-08-20 09:57 | AM.OFFWIN_ITS ---
Intake Vital Signs 08/20/24 10:04 Weight 170 lb 2 oz BP 110/80 Blood Pressure Location Rt brachial Position Sitting Pulse 68 Pulse Source Pulse Oximeter Pulse Oximetry (%) 98 Oxygen Delivery Method Room Air Intake Visit Reasons: EP LT ear pain [phone] Intake Note: Patient here for left ear pain that has been present since . Patient Tobacco Use Status: Never used Tobacco Allergies morphine [MORPHINE] Allergy (Unknown, Verified 08/20/24 09:57) HIVES oxycodone [OXYCODONE] Allergy (Unknown, Verified 08/20/24 09:57) HIVES Do you need a note to return to daycare/school/sports/work: Yes HPI EP LT ear pain [phone] HPI Details This note is constructed using voice recognition software. While every effort has been made to ensure accuracy, used equipment sales representative errors may have been included. The patient is a 38 year old female who presents to the clinic today with left- sided ear pain for the past several days. She denies fever, chills, cough, shortness of breath, or other URI symptoms. 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 [facility] Medical History Gestational diabetes Pain in pelvis delivery affecting Right shoulder pain Subclinical hyperthyroidism Vitamin D deficiency Goiter History of gestational diabetes History of pre-eclampsia Depression History of placenta abruption Surgical History H/O section H/O shoulder surgery Family History Father Heart attack, Onset Age: 55 HTN (hypertension) CVD (cardiovascular disease) Mother HTN (hypertension) DMII (diabetes mellitus, type 2) Social History Housing: Apartment Alcohol intake: current Alcohol intake frequency: does not drink Alcohol type: wine Patient Tobacco Use Status: Never used Tobacco e-Cigarette/Vaping Use: Never Used Second Hand Smoke Exposure: No Substance Use Type: Marijuana service: No Current occupational status: employed 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- [employer] Current occupational exposures/hazards: No Sexual orientation: Straight/Heterosexual Gender identity: Female Cognitive needs: No Hearing needs: No Vision needs: Yes Female Reproductive History Menstrual Age of Menarche: 18 Review of Systems Const All systems reviewed & are unremarkable except as noted in HPI and below Physical Exam Vital Signs: Last Vital Signs Pulse 68 08/20/24 10:04 BP 110/80 08/20/24 10:04 Pulse Ox 98 08/20/24 10:04 Oxygen Delivery Method Room Air 08/20/24 10:04 Const General: cooperative, healthy appearing, comfortable and no acute distress Orientation/consciousness: patient oriented x3 HEENT Head: Yes normal to inspection, Yes No palpable skull fracture present and Yes normocephalic Ears: hearing grossly normal bilaterally, external ears normal, EAC's normal, mastoids normal (no TTP) bilaterally and TM abnormal (On the left) bulging and erythematous General nose exam: Normal external nose present Face and sinus: Yes normal facial exam Mouth: Normal oral and palatal mucosa present Teeth and gingiva: dentition normal Throat: Yes posterior oropharynx normal Eyes General: appearance normal, both eyes and all related structures Neck Neck: Yes normal visual inspection, Yes full ROM, Yes no lymphadenopathy, Yes no meningeal signs, Yes trachea midline and Yes supple Resp Effort & Inspection: normal respiratory effort and able to speak in complete sentences Skin General skin exam: no rashes or lesions noted Neuro General: patient oriented x3 and no meningeal signs Assessment & Plan Assessment & Plan (1) Otitis media: Code(s): H66.90 - Otitis media, unspecified, unspecified ear Qualifiers: Otitis media type: suppurative Chronicity: acute Laterality: left Recurrence: non-recurrent Spontaneous tympanic membrane rupture: without spontaneous rupture Qualified Code(s): H66.002 - Acute suppurative otitis media without spontaneous rupture of ear drum, left ear Plan: Antibiotics sent to requested pharmacy. Advised heat versus ice to the area for pain as well as NSAIDs. Advised follow up with worsening or failure to resolve. Plan See above for full details and plan. Medications: New amoxicillin-pot clavulanate 875-125 mg 1 tab PO BID 10 days 20 tabs 0RF Coding Level of Care Code Est Pt Level 3 (64866) Diagnoses Non-recurrent acute suppurative otitis media of left ear without spontaneous rupture of tympanic membrane H66.002 Otitis media type: suppurative Chronicity: acute Laterality: left Recurrence: non-recurrent Spontaneous tympanic membrane rupture: without spontaneous rupture
[2024-08-20 10:04] VITALS: BP 110/80; PULSE 68; O2SAT 98
== END 2024-08-20 10:15 | disposition home or self-care (01) ==
PROVIDERS: PCP Internal Medicine; Visit Provider Registered Nurse
DX: H66.002 Acute suppurative otitis media without spontaneous rupture of ear drum, left ear (principal)

== ENCOUNTER → 2024-08-20 08:57 | Outpatient (BNVA) | payer OTHER, SELFPAY | PROVIDERS: PCP Internal Medicine; Visit Provider Registered Nurse | DX: H66.002 Acute suppurative otitis media without spontaneous rupture of ear drum, left ear (principal) | CPT/HCPCS: 99212 ==

== ENCOUNTER 2024-10-04 10:48 | Outpatient (AMB) | payer OTHER, SELFPAY ==
--- NOTE | 2024-10-04 10:51 | A.OFFPC_ITS ---
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1% 1 appl topical DAILY PRN 30 days Tobacco use date assessed: 02/15/24 Dental Screening Dental Screen Date: 02/15/24 HPI HPI Comments History of Present Illness Details The patient is a 38-year-old female presenting with thyroid flare-up, c haracterized by neck pain and dysphagia. The symptoms began following a morning when the patient awoke with swelling around the Bebo's apple and a painful neck accompanied by a sensation of a nodule in the throat. The patient describes significant discomfort while swallowing, both solids and liquids, which persisted throughout the day. These symptoms prompted the scheduling of this appointment. The patient reports historical issues suggesting a thyroid flare- up, characterized by fatigue, decreased energy, sweating, and facial swelling. Approximately one month prior, the patient experienced her first-ever ear infection, which escalated to severe ear pain and hearing loss. Initial treatment at a walk-in clinic identified it as an ear infection but it worsened, leading to a [facility] emergency visit where it was diagnosed as a viral infection. Treatment included ear drops and steroid cream. Despite treatment, symptoms lingered for over a month. The patient's heartburn is currently well-managed with omeprazole. Recent dietary changes, including increased intake of spicy foods like kimchi, slightly aggravated her condition. She has a history of allergic reactions to morphine and oxycodone, experiencing hives with both medications. The patient uses several medications as needed, including Flexeril, Diclofenac, Gabapentin, Omeprazole, Cetirizine, and topical treatment for dermatitis. She also uses Mirena for contraception. [facility] Medical History Gestational diabetes Pain in pelvis delivery affecting Right shoulder pain Subclinical hyperthyroidism Vitamin D deficiency Goiter History of gestational diabetes History of pre-eclampsia Depression History of placenta abruption Surgical History H/O section H/O shoulder surgery Family History Father Heart attack, Onset Age: 55 HTN (hypertension) CVD (cardiovascular disease) Mother HTN (hypertension) DMII (diabetes mellitus, type 2) Social History Housing: Apartment Alcohol intake: current Alcohol intake frequency: does not drink Alcohol type: wine Patient Tobacco Use Status: Never used Tobacco e-Cigarette/Vaping Use: Never Used Second Hand Smoke Exposure: No Substance Use Type: Marijuana service: No Current occupational status: employed 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 Bill Coleman, Cintia Eagle, Anand Gamboa and colleagues, with an educational sterling from [employer]. Review of Systems Const All systems reviewed & are unremarkable except as noted in HPI and below ENT Reports dysphagia Card Denies chest pain at rest, Denies chest pain with activity, Denies edema, Denies irregular heart rhythm, Denies claudication, Denies dyspnea, Denies dyspnea on exertion, Denies orthopnea, Denies paroxysmal nocturnal dyspnea and Denies slow heart rate Resp Denies cough, Denies dyspnea and Denies dyspnea on exertion GI Denies abdominal pain, Denies change in bowel habits, Reports dysphagia, Denies excessive flatus, Denies nausea and Denies vomiting Denies urinary incontinence, Denies urinary hesitancy and Denies urinary urgency Musc Denies abnormal gait, Denies atrophy, Denies deformity and Denies limited range of motion Skin/Breast Denies bleeding lesions, Denies changing lesions and Denies rash Neuro Denies abnormal gait, Denies behavioral changes and Denies lack of coordination Psych Denies behavioral changes Physical exam (Primary Care) Vital Signs: Last Vital Signs BP 110/70 10/04/24 10:52 BMI result Body Mass Index 28.8 Tobacco/Smoking Status: Tobacco use Status Tobacco use date assessed 02/15/24 10/04/24 10:52 Patient Tobacco Use Status Never used Tobacco 10/04/24 10:52 Tobacco use type 08/20/24 08:45 e-Cigarette/Vaping Use Never Used 10/04/24 10:52 Thrive Assessment: Date of Thrive Assessment Date Thrive assessed 02/15/24 10/04/24 10:52 Neck Thyroid: diffusely enlarged Resp Effort & Inspection: normal respiratory effort Auscultation: clear to auscultation bilaterally Cardio Jugular venous distension: no JVD Rate: regular rate Rhythm: regular rhythm Heart sounds: S1 normal heart sound present and S2 normal heart sound present Extrem General: Yes full ROM Office Procedures Flu Questionnaire Does the patient have a severe egg allergy?: No Immunizations Fluarix Triv [id number] (PF) 45 mcg (15 mcg x 3)/0.5 mL IM syringe Performing Provider: Sofia Stephens MD [facility] [place] [facility] Documented (not given) by: JEFFERY Santiago on 10/04/24 10:56 Reason Not Given: Patient Refused Coding Level of Care Code Est Pt Level 3 (27529) Complex EM visit Add On G2211 Diagnoses Goiter E04.9 Chronic GERD K21.9 Fatigue R53.83 Time Spent (min) 19 Assessment & Plan Assessment & Plan (1) Goiter: Code(s): E04.9 - Nontoxic goiter, unspecified Category: Medical (2) Chronic GERD: Code(s): K21.9 - Gastro-esophageal reflux disease without esophagitis Category: Medical (3) Fatigue: Code(s): R53.83 - Other fatigue Category: Medical Plan - Thyroid Dysfunction: Order a thyroid ultrasound and laboratory tests to evaluate thyroid function. - Heartburn: Refill omeprazole prescription to continue current management. Patient was informed and verbally consented to the use of an ambient scribe for clinic note documentation during this visit. I discussed with the patient the likely diagnosis of a thyroid dysfunction, given the symptoms described and the history of similar flare-ups. We talked about the plan to obtain a thyroid ultrasound and laboratory tests to further investigate the condition. I clarified that the laboratory tests would not require fasting and could be completed today. Regarding her ear infection, we reviewed her past treatments and the significance of the viral diagnosis. We discussed the patient?s request for an omeprazole refill, which was readily approved, and addressed her heartburn management, including implications of dietary choices such as spicy foods like kimchi. I ensured the patient understood the follow-up process and would contact the office if symptoms worsened. Orders: Orders Influenza [id number] Immunization Today Z23 - Encounter for immunization Thyroid Stimulating Hormone Today E04.9 - Nontoxic goiter, unspecified Free T4 (Free Thyroxine) Today E04.9 - Nontoxic goiter, unspecified Thyroglobulin Antibodies Today E04.9 - Nontoxic goiter, unspecified Thyroid Peroxidase Antibodies Today E04.9 - Nontoxic goiter, unspecified US thyroid Today E04.9 - Nontoxic goiter, unspecified Medications: Refilled omeprazole 20 mg PO DAILY 30 caps 1RF 30 days K21.9 - Gastro-esophageal reflux disease without esophagitis Patient Instructions: - Complete the thyroid ultrasound and lab tests at your earliest convenience. - Continue current medication regimen, including omeprazole for heartburn. - Consider moderating intake of spicy foods like kimchi to better manage heartburn.
[2024-10-04 10:52] VITALS: BP 110/70; BMI 28.8
--- OUTSIDE RECORDS SUMMARY | 2024-10-10 01:44 | XMS_ITS | Continuity of Care Document ---
Author Organization [facility] Address [address] [place] [address] Phone Care Team Providers Care Talent Acquisition Assistant Name Role Phone Serina Price RDH Unavailable [...] Dental Patient Bitewings Four Films Comprehensive Oral Evaluation ??? New Or Established Caries Risk Assess, Finding Mod Risk Jan Excluded From Sealants Advance Directives Directive Yes / No Effective Date File Name No Information Encounters Encounter Description Practice Location Reason(s) For Visit Diagnoses Date Provider Providers Copied on Encounter [facility], [address] [place] [address], [place], [id number], [place] tel:[phone] [facility] Dental Encounter for dental exam and cleaning w/o abnormal findings Raúl Smalls. [address], [place], [id number]. tel:[phone] [facility], [address], [place], [id number], [place] tel:[phone] [facility] Dental Dental examination Jaya Garcia. [address] [place], [address]. tel:[phone] [facility], [address], [place], [id number], tel:[phone] [facility] Dental dental (chief complaint) Dental examination Jade Tabares. [address], [place], [id number]. tel:[phone] Family History Family Member Type Diagnosis Age At Onset No Information Payers Payer name Insurance type Covered alliance party ID chetna nancyreynaldo(s) D [place] [facility] [id number] Social History Type Description Quantity Date Captured [...]
== END 2024-10-04 11:11 | disposition home or self-care (01) ==
PROVIDERS: PCP Internal Medicine; Visit Provider Internal Medicine
DX: E04.9 Nontoxic goiter, unspecified (principal); K21.9 Gastro-esophageal reflux disease without esophagitis; R53.83 Other fatigue; Z23 Encounter for immunization

== ENCOUNTER 2024-10-04 10:48 | Outpatient (REF) | payer OTHER, SELFPAY ==
[2024-10-04 13:00] LABS: Free T4 (Free Thyroxine) 0.99 ng/dL (0.71-1.85); Thyroid Stimulating Hormone 0.45 uIU/mL (0.32-4.0)
[2024-10-06 04:18] LABS: Thyroglobulin Antibodies <1 IU/mL (< or = 1); Thyroid Peroxidase Antibodies <1 IU/mL (<9)
--- OUTSIDE RECORDS SUMMARY | 2024-10-10 01:57 | XMS_ITS | Continuity of Care Document ---
Author Organization [facility] Address [address] [place] [address] Phone Care Team Providers Care Log Washer Name Role Phone Serina Price RDH Unavailable [...] Diagnoses Date Provider Providers Copied on Encounter [facility], [address] [place], [place], [id number], [place] tel:[phone] [facility] Dental Encounter for dental exam and cleaning w/o abnormal findings Raúl Smalls. [address] [place], [place], [id number]. tel:[phone] [facility], [address], [place], [id number], [place] tel:[phone] [facility] Dental Dental examination Jaya Garcia. [address] [place], [address]. tel:[phone] [facility], [address], [place], [id number], tel:[phone] [facility] Dental dental (chief complaint) Dental examination Jade Tabares. [address], [place], [id number]. tel:[phone] Family History Family Member Type Diagnosis Age At Onset No Information Payers Payer name Insurance type Covered republican ID chetna nancyreynaldo(s) D Medicaid [place] Dental [id number] Social History Type Description Quantity Date Captured [...]
== END 2024-10-04 10:49 | disposition home or self-care (01) ==
LOC: HO.LAB 10:48
PROVIDERS: PCP Internal Medicine; Visit Provider Internal Medicine
DX: E04.9 Nontoxic goiter, unspecified (principal); K21.9 Gastro-esophageal reflux disease without esophagitis; R53.83 Other fatigue; Z28.21 Immunization not carried out because of patient refusal
CPT/HCPCS: 36415; 84439; 84443; 86376; 86800; 90471; 99212

== ENCOUNTER 2024-10-25 15:11 | Outpatient (REF) | payer OTHER, SELFPAY | END 2024-10-25 15:12 | disposition home or self-care (01) | LOC: HO.US 15:11 | PROVIDERS: PCP Internal Medicine; Visit Provider Internal Medicine | DX: E04.9 Nontoxic goiter, unspecified (principal) | CPT/HCPCS: 76536 ==

== ENCOUNTER → 2024-10-25 15:13 | Outpatient (BNV) | payer OTHER, SELFPAY | PROVIDERS: PCP Internal Medicine; Visit Provider Radiology Diagnostic Radiology | DX: E04.9 Nontoxic goiter, unspecified (principal) | CPT/HCPCS: 76536 ==

== ENCOUNTER 2025-03-06 13:00 | Outpatient (REF) | payer OTHER, SELFPAY ==
--- NOTE | ~2025-03-06 | XR_ITS ---
EXAMINATION: XR FOOT 1-2 VIEWS LEFT HISTORY: M79.672 - Pain in left foot COMPARISON: There are no prior studies available for comparison. FINDINGS: Three views of the left foot are submitted. Osseous mineralization is normal. There is no fracture or dislocation. The joint spaces are preserved. The soft tissues are unremarkable. XR/XR foot LT 2V IMPRESSION: Unremarkable examination of the left foot. Electronically signed by: Bill Weathers MD 03/06/2025 02:35 PM EDT
--- OUTSIDE RECORDS SUMMARY | 2025-03-06 14:41 | XMS_ITS | Encounter Summary ---
Author Organization [facility] Address [address] [place] [address] Care Team Providers Care Religious Education Director Name Role Phone Lucio Terry Primary Care Provider [phone] Encounter Details Date Type Department Care Team (Latest Contact Info) Description 08/16/2017 Transcribed [facility] - [address] [phone] Lucio Terry PA [address] [facility] [address] [place] [phone] Routine general medical examination at a health [...] Primary documented in this encounter Care Teams Religious Education Director Relationship Specialty Start Date End Date Lucio Terry PA [address] [place] [phone] PCP - General 07/29/16 documented as of this encounter
--- OUTSIDE RECORDS SUMMARY | 2025-03-06 14:41 | XMS_ITS | Clinical Summary ---
Author Organization [address] Address [address] [place] [address] Care Team Providers Care Rack Puller Name Role Phone Lucio Terry Primary Care Provider [phone] Allergies Active Allergy Reactions Criticality Noted Date [...] on file MGD on file Care Teams Rack Puller Relationship Specialty Start Date End Date Lucio Terry PA [address] [place] [phone] PCP - General 07/29/16
--- OUTSIDE RECORDS SUMMARY | 2025-03-06 14:41 | XMS_ITS | Encounter Summary ---
Author Organization [facility] Care Team Providers Care Rfid Specialist Name Role Phone Lucio Terry Primary Care Provider [phone] Encounter Details Date Type Department Care Team ([facility] Contact Info) Description 06/30/2016 Scanned Document [facility] [address] [place] [address], [address] [place] [address] External, Provider Social History Tobacco Use Types [...] on filedocumented in this encounter Care Teams Rfid Specialist Relationship Specialty Start Date End Date Lucio Terry PA [address] [place] [phone] PCP - General 07/29/16 documented as of this encounter
--- OUTSIDE RECORDS SUMMARY | 2025-03-06 14:41 | XMS_ITS | Encounter Summary ---
Author Organization [place] + [facility] Care Team Providers Care Senior Oracle Soa Developer Name Role Phone Lucio Terry Primary Care Provider [phone] Encounter Details Date Type Department Care Team (Late st Contact Info) Description 06/30/2016 Scanned Document [facility] [address] [place] [address], [address] [place] [address] External, Provider Social History Tobacco Use Types [...] SCAN REPORTS Final Result Performing Organization Address City/[facility] Co de Phone Number [facility] [place], [place], [place] * [place] Result Scan (06/30/2016) us Provider External IMG SCAN REPORTS Final Result [facility] [place], [place] * [place] Result Scan (06/30/2016) us Provider External IMG SCAN REPORTS Final Result Performing Organization Address [facility] Co de Phone Number [facility] * CT Result Scan (06/30/2016) us Provider External IMG SCAN REPORTS Final Result Performing Organization Address [facility] Co de Phone Number [facility] * Lab Scan (06/30/2016) Blood specimen (specimen) us Provider External LAB BLOOD ORDERABLES Final Res ult Performing Organization Address [facility] Co de Phone Number [facility] documented in this encounter Visit Diagnoses Not on filedocumented in this encounter Care Teams Senior Oracle Soa Developer Relationship Specialty Start Date End Date Lucio Terry PA [address] [place] [phone] PCP - General 07/29/16 documented as of this encounter
--- OUTSIDE RECORDS SUMMARY | 2025-03-06 14:41 | XMS_ITS | Encounter Summary ---
Author Organization [facility] Care Team Providers Care Activity Leader Name Role Phone Lucio Terry Primary Care Provider [phone] Encounter Details Date Type Department Care Team ([facility] Contact Info) Description 06/30/2016 Scanned Document [facility] [address] [place] [address], [address] [place] [address] External, Provider Social History Tobacco Use Types [...] on filedocumented in this encounter Care Teams Activity Leader Relationship Specialty Start Date End Date Lucio Terry PA [address] [place] [phone] PCP - General 07/29/16 documented as of this encounter
--- OUTSIDE RECORDS SUMMARY | 2025-03-06 14:41 | XMS_ITS | Encounter Summary ---
Author Organization [facility] Address [address] [place] [address] Care Team Providers Care Drafter Landscape Name Role Phone Lcuio Terry Primary Care Provider [phone] Encounter Details Date Type Department Care Team ([facility] st Contact Info) Description 03/24/2021 Orders Only Gynecology [address] [place], [place] [id number] Cyndy Pittman, DO [address] [place] [address] [address] [place] [address] Social History Tobacco Use Types [...] on filedocumented in this encounter Care Teams Drafter Landscape Relationship Specialty Start Date End Date Lucio Terry PA [address] [place] [phone] PCP - General 07/29/16 documented as of this encounter
--- OUTSIDE RECORDS SUMMARY | 2025-03-06 14:41 | XMS_ITS | Continuity of Care Document ---
Author Organization [facility] Address [address] [place] [address] Phone Care Team Providers Care Executive Advisor Name Role Phone Serina Price RDH Unavailable [...] Diagnoses Date Provider Providers Copied on Encounter [facility], [address] [place], [place], [id number], [place] tel:[phone] [facility] Dental Encounter for dental exam and cleaning w/o abnormal findings Raúl Smalls. [address] [place], [place], [address]. tel:[phone] [facility], [address] [place], [place], [address], [place] tel:[phone] [facility] Dental Dental examination Jaya Garcia. [address] [place], [address]. tel:[phone] [facility], [address] [place], [place], [id number], tel:[phone] [facility] Dental dental (chief complaint) Dental examination Jade Tabares. [address] [place], [place], [address]. tel:[phone] Family History Family Member Type Diagnosis Age At Onset No Information Payers Payer name Insurance type Covered republican ID chetna nancyreynaldo(s) D Medicaid [place] [facility] [id number] Social History Type Description Quantity Date Captured [...]
== END 2025-03-06 13:01 | disposition home or self-care (01) ==
LOC: HO.HMGCX 13:00
PROVIDERS: PCP Internal Medicine; Visit Provider Internal Medicine
DX: M79.672 Pain in left foot (principal); M54.16 Radiculopathy, lumbar region; R20.2 Paresthesia of skin
CPT/HCPCS: 73620; 99212

== ENCOUNTER 2025-03-06 13:00 | Outpatient (AMB) | payer OTHER, SELFPAY ==
--- NOTE | 2025-03-06 13:05 | MHC.OFFWIV ---
Intake Vital Signs 03/06/25 13:10 Weight 163 lb BP 112/66 Blood Pressure Location Rt brachial Position Sitting Pulse 65 Pulse Source Pulse Oximeter Pulse Oximetry (%) 98 Oxygen Delivery Method Room Air Intake Visit Reasons: EP-lt ankle pain Intake Note: Patient here for left ankle pain that has been present for a couple of weeks w/little to no improvement with trying OTC meds. Patient Tobacco Use Status: Never used Tobacco Allergies morphine [MORPHINE] Allergy (Unknown, Verified 03/06/25 13:11) HIVES oxycodone [OXYCODONE] Allergy (Unknown, Verified 03/06/25 13:11) HIVES Medication List - Last Reconciled 03/06/25 by Rich Covington MD acetaminophen 1,000 mg (2 x 500 mg) PO Q6H PRN cetirizine (Allergy Relief (cetirizine)) 10 mg PO DAILY PRN 90 days cyclobenzaprine 10 mg PO TID PRN diclofenac potassium 50 mg PO BID gabapentin 100 mg PO TID levonorgestrel (Mirena) intrauterine omeprazole 20 mg PO DAILY 30 days triamcinolone acetonide 0.1% 1 appl topical DAILY PRN 30 days Do you need a note to return to daycare/school/sports/work: No HPI EP-lt ankle pain HPI Details History - The patient is a 39-year-old female presenting with left leg pain and evaluation of sciatica-related symptoms. - Approximately two months ago, the patient began experiencing a throbbing pain in the left leg that was episodic initially but then became continuous. - The pain persists throughout the day, worsening with various positions, particularly at bedtime, when lying down, or after prolonged standing. - The quality of the pain includes burning and stinging, with occasional radiating discomfort from the foot upward. - No inciting injuries or significant physical trauma have been reported, although there is a history of sciatica on the left side. - The pain is not alleviated by simple analgesics like Tylenol or ibuprofen, nor by lifestyle products such as copper bracelets. - An MRI of the lumbar spine from March of last year indicates mild multilevel degenerative changes and moderate left-sided foraminal stenosis at the L5-S1 level. 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 - Past treatment includes physical therapy and previously tried pain management strategies. - Despite these interventions, the condition has progressively worsened, causing increased sensitivity upon touch and constant awareness of pain. 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 - Begin taking prescribed prednisone and diclofenac for back pain management. - Discuss the possibility of a cortisone injection during the upcoming appointment with Dr. Ibarra, especially if pain persists. - Ensure that medication allergies, such as morphine, are accurately listed in medical records. Review of Systems - General: No fever no chills - Neurological: No headaches no dizziness - Ear nose throat: No sore throat no hearing difficulty no ear pain - Cardiovascular: No syncope, no chest pain, no palpitations - Gastrointestinal: No nausea vomiting or diarrhea - Endocrine: No polyuria polydipsia no heat intolerance - Genitourinary: No dysuria , no blood in urine Physical Exam General: No acute distress HEENT: No acute findings Neck: Supple Respiratory system: Able to talk in full sentences, no audible wheeze Gastrointestinal: No pain Extremities: Left leg pain, throbbing, burning, and stinging sensation; sensitive to touch, local pain left foot medial aspect with pressure EDUCATION DEPARTMENT REGISTRAR: Alert awake oriented x3 motor sensory intact Skin: Normal turgor [facility] Medical History Gestational diabetes Pain in pelvis delivery affecting Right shoulder pain Subclinical hyperthyroidism Vitamin D deficiency Goiter History of gestational diabetes History of pre-eclampsia Depression History of placenta abruption Surgical History H/O section H/O shoulder surgery Family History Father Heart attack, Onset Age: 55 HTN (hypertension) CVD (cardiovascular disease) Mother HTN (hypertension) DMII (diabetes mellitus, type 2) Social History Housing: Apartment Alcohol intake: current Alcohol intake frequency: does not drink Alcohol type: wine Patient Tobacco Use Status: Never used Tobacco e-Cigarette/Vaping Use: Never Used Second Hand Smoke Exposure: No Substance Use Type: Marijuana service: No Current occupational status: employed 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 Current occupational exposures/hazards: No Sexual orientation: Straight/Heterosexual Gender identity: Female Cognitive needs: No Hearing needs: No Vision needs: Yes Female Reproductive History Menstrual Age of Menarche: 18 Physical Exam Vital Signs: Last Vital Signs Pulse 65 03/06/25 13:10 BP 112/66 03/06/25 13:10 Pulse Ox 98 03/06/25 13:10 Oxygen Delivery Method Room Air 03/06/25 13:10 Assessment & Plan Assessment & Plan (1) Lumbar radiculopathy: Code(s): M54.16 - Radiculopathy, lumbar region (2) Paresthesia of left leg: Code(s): R20.2 - Paresthesia of skin (3) Degenerative joint disease (DJD) of lumbar spine: Code(s): M47.816 - Spondylosis without myelopathy or radiculopathy, lumbar region Qualifiers: Spinal osteoarthritis complication: with radiculopathy Qualified Code(s): M47.26 - Other spondylosis with radiculopathy, lumbar region (4) Foot pain, left: Code(s): M79.672 - Pain in left foot (5) Pinched vertebral nerve: Code(s): G58.8 - Other specified mononeuropathies Plan History - The patient is a 39-year-old female presenting with left leg pain and evaluation of sciatica-related symptoms. - Approximately two months ago, the patient began experiencing a throbbing pain in the left leg that was episodic initially but then became continuous. - The pain persists throughout the day, worsening with various positions, particularly at bedtime, when lying down, or after prolonged standing. - The quality of the pain includes burning and stinging, with occasional radiating discomfort from the foot upward. - No inciting injuries or significant physical trauma have been reported, although there is a history of sciatica on the left side. - The pain is not alleviated by simple analgesics like Tylenol or ibuprofen, nor by lifestyle products such as copper bracelets. - An MRI of the lumbar spine from March of last year indicates mild multilevel degenerative changes and moderate left-sided foraminal stenosis at the L5-S1 level. 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 - Past treatment includes physical therapy and previously tried pain management strategies. - Despite these interventions, the condition has progressively worsened, causing increased sensitivity upon touch and constant awareness of pain. 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 - Begin taking prescribed prednisone and diclofenac for back pain management. - Discuss the possibility of a cortisone injection during the upcoming appointment with Dr. Ibarra, especially if pain persists. - Ensure that medication allergies, such as morphine, are accurately listed in medical records. Orders: Orders XR foot LT 2V Today M79.672 - Pain in left foot Medications: New methylprednisolone (Medrol (Luciano)) PO PER PKG DIR 6 days 21 ea 0RF diclofenac sodium 75 mg PO BID 10 days 20 tabs 0RF pain Discontinued diclofenac potassium Do not take with any other nonsteroidal anti-inflammatory medications. Take with food Discontinued Reason: Doctor's Order 50 mg PO BID 60 tabs 0RF Coding Level of Care Code Est Pt Level 4 (42113) Diagnoses Lumbar radiculopathy M54.16 Paresthesia of left leg R20.2 Osteoarthritis of spine with radiculopathy, lumbar region M47.26 Spinal osteoarthritis complication: with radiculopathy Foot pain, left M79.672 Pinched vertebral nerve G58.8
[2025-03-06 13:10] VITALS: BP 112/66; PULSE 65; O2SAT 98
--- OUTSIDE RECORDS SUMMARY | 2025-03-06 14:11 | XMS_ITS | Encounter Summary ---
Author Organization [facility] Address [address] [place] [id number] Care Team Providers Care Principal Software Architect Name Role Phone Lucio Terry Primary Care Provider [phone] Encounter Details Date Type Department Care Team ([facility] st Contact Info) Description 03/24/2021 Orders Only Gynecology [address] [place], [place] [id number] Cyndy Pittman, DO [address] [place] [address] [address] [place] [address] Social History Tobacco Use Types Packs/Day Years Used Date Smoking Tobacco: Never Smokeless Tobacco: Never Alcohol Use Standard Drinks/Week Comments No 1 (1 standard drink = 0.6 oz pur e alcohol) Comments Unknown Sex and Gender Information Value Date Recorded Sex Assigned at Not on file Legal Sex Female 9:29 PM EST Gender Identity Not on file Sexual Orientation Not on file documented as of this encounter Plan of Treatment Not on file documented as of this encounter Visit Diagnoses Not on filedocumented in this encounter Care Teams Principal Software Architect Relationship Specialty Start Date End Date Lucio Terry PA [address] [place] [phone] PCP - General 07/29/16 documented as of this encounter
--- OUTSIDE RECORDS SUMMARY | 2025-03-06 14:11 | XMS_ITS | Encounter Summary ---
Author Organization [facility] Care Team Providers Care Foreman Shipping Department Name Role Phone Lucio Terry Primary Care Provider [phone] Encounter Details Date Type Department Care Team ([facility] Contact Info) Description 06/30/2016 Scanned Document [facility] [address] [place] [address], [address] [place] [address] External, Provider Social History Tobacco Use Types Packs/Day Years Used Date Smoking Tobacco: Every Day Smokeless Tobacco: Never Alcohol Use Standard Drinks/Week Comments Yes 1 (1 standard drink = 0.6 oz [...] on filedocumented in this encounter Care Teams Foreman Shipping Department Relationship Specialty Start Date End Date Lucio Terry PA [address] [place] [phone] PCP - General 07/29/16 documented as of this encounter
--- OUTSIDE RECORDS SUMMARY | 2025-03-06 14:11 | XMS_ITS | Encounter Summary ---
Author Organization [facility] Care Team Providers Care Sales And Service Change Leader Name Role Phone Lucio Terry Primary Care Provider [phone] Encounter Details Date Type Department Care Team (Late st Contact Info) Description 06/30/2016 Scanned Document [facility] [address] [place] [address], [address] [place] [address] External, Provider Social History Tobacco Use Types [...] on file documented as of this encounter Procedures Procedure Name Priority Date/Time Associated Diagnosis Comments US RESULT SCAN Routine 06/30/2016 CT RESULT SCAN Routine 06/30/2016 CT RESULT SCAN Routine 06/30/2016 CT RESULT SCAN Routine 06/30/2016 LAB SCAN Routine 06/30/2016 documented in this encounter Results * CT Result Scan (06/30/2016) us Provider External IMG SCAN REPORTS Final Result Performing Organization Address City/[facility] Co de Phone Number [facility] [place], [place], [place] * CT Result Scan (06/30/2016) us Provider External IMG SCAN REPORTS Final Result [facility] [place], [place] * [place] Result Scan (06/30/2016) us Provider External IMG SCAN REPORTS Final Result Performing Organization Address [facility] Co de Phone Number [facility] * CT Result Scan (06/30/2016) us Provider External IMG SCAN REPORTS Final Result Performing Organization Address [facility] Co de Phone Number [facility] * Lab Scan (06/30/2016) Blood specimen (specimen) us Provider External LAB BLOOD ORDERABLES Final Res ult Performing Organization Address [facility] Co de Phone Number [facility] documented in this encounter Visit Diagnoses Not on filedocumented in this encounter Care Teams Sales And Service Change Leader Relationship Specialty Start Date End Date Lucio Terry PA [address] [place] [phone] PCP - General 07/29/16 documented as of this encounter
--- OUTSIDE RECORDS SUMMARY | 2025-03-06 14:11 | XMS_ITS | Clinical Summary ---
Author Organization [address] Address [address] [place] [address] Care Team Providers Care Design Checker Name Role Phone Lucio Terry Primary Care Provider [phone] Allergies Active Allergy Reactions Criticality Noted Date Comments Oxycodone Rash,Hallucinations Low 06/10/2016 Medications pantoprazole (PROTONIX) 40 MG TbECIndications: Gastroesophageal reflux disease without esophagitis Take 40 mg by mouth daily before breakfast. 30 each 11 07/29/2016 Active ondansetron (ZOFRAN) 4 MG tabletIndication s:Nausea and vomiting, unspecified intactability, vomiting of unspecified type Take 1 tablet (4 mg total) by mouth every 8 (eight) hours as needed for Nausea. 60 tablet 6 07/29/2016 Active omeprazole (PRILOSEC) 20 MG capsule Take 20 mg by mouth 2 (two) times daily. Active dicyclomine (BENTYL) 10 MG capsuleIndicatio ns:Left lower quadrant pain Take 1 capsule (10 mg total) by mouth 4 (four) times daily as needed.. 100 capsule 6 08/22/2017 Active Active Problems Problem Noted Date Diagnosed Date Helicobacter pylori infection 07/29/2016 Overview (01/20/2017): Treated 07/2016. Family History Medical History Relation Name Comments Schizophrenia Brother Colon cancer Neg Hx Colon polyps Neg Hx Relation Name Status Comments Brother Social History Tobacco Use Types Packs/Day Years Used Date Smoking Tobacco: Never Smokeless Tobacco: Never Alcohol Use Standard Drinks/Week Comments No 1 (1 standard drink = 0.6 oz pur e alcohol) Comments Unknown Sex and Gender Information Value Date Recorded Sex Assigned at Not on file Legal Sex Female 9:29 PM EST Gender Identity Not on file Sexual Orientation Not on file Last Filed Vital Signs Vital Sign Reading Time Taken Comments Blood Pressure 108/91 02/07/2018 10:11 AM EDT Pulse 67 02/07/2018 10:11 AM EDT Temperature 36.7 ??C (98.1 ??F) 02/07/2018 11:50 AM E DT Respiratory Rate 18 02/07/2018 10:11 AM EDT Oxygen Saturation 100% 02/07/2018 10:11 AM EDT Inhaled Oxygen Concentration - - Weight 63.5 kg (140 lb) 02/07/2018 10:11 AM EDT Height 165.1 cm (5' 5 ) 02/07/2018 10:11 AM EDT Body Mass Index 23.3 02/07/2018 10:11 AM EDT Plan of Treatment Health Maintenance Due Date Last Done Comments HIV screening 1999 Hepatitis C screening 2004 Tetanus adult (Td q 10,TDAP once) 2006 Cervical cancer screening 2007 Covid-19 vaccine series ( - 2023-25 season) 2024 Influenza vaccine 07/01/2025 RSV Immunization (1 - 1-dose 75+ series) 2061 Meningococcal Vaccine Aged Out No valentina laura eligible based on patient's age to complete this topic Pneumococcal Vaccine (2 - 49 years) Aged Out No longer eligible based on patient's age to complete this topic Insurance on file MGD on file MGD on file MGD on file MGD on file Care Teams Design Checker Relationship Specialty Start Date End Date Lucio Terry PA [address] [place] [phone] PCP - General 07/29/16
--- OUTSIDE RECORDS SUMMARY | 2025-03-06 14:11 | XMS_ITS | Continuity of Care Document ---
Author Organization [place] - [facility], [facility] Address [address] [place] [address] Care Team Providers Care Tinter Photograph Name Role Phone MEKA GAXIOLA Primary Care Provider [phone] Assessment Encounter Date Assessment Date Assessment LastModified by Organization Details LastModified Time 03/01/2025 03/01/2025 39yo female with left tinnitus and TMJ presents for evaluation of the ears. Squamous cast was removed from the left external auditory canal. TMs are normal to inspection. Middle ear spaces are well aerated. Audiometric testing demonstrates normal hearing with excellent speech discrimination, and normal tympanometry. We discussed that the squamous cast was likely the cause of her intermittent ear blockage sensation. Recommend mineral oil drops as needed to soften cerumen. [email or web address] Not available 03/01/2025 16:59:58 Plan of Treatment Reminders Order Date Submit Date Provider Last Modified By Organization Details Last Modified Time Details Appointments None record ed. Lab None record ed. Referral None record ed. Procedures None record ed. Surgeries None record ed. Imaging None record ed. Medication Orders None record ed. Patient TargetsNo targets recorded. Patient InstructionsNo instructions recorded. Reason for Referral None Reported. Results Created Date Observation Date Name Description Value Unit Range Abnormal Flag Note LastModifiedBy Organization Detail LastModifiedTime 03/01/20 25 audio gram No observ ation record ed. BARCODE Not Available 2024 16:30:19 Result Notes None recorded. Problems Name Problem SNOMED Code Status Onset Date Resolution Date Notes Provider Name and Address Organization Details Recorded Time Impacted cerumen of bilateral ears 47215032970 23771 Active 2019 Impacted cerumen, bilateral ; Note: Date Diagnosed : 04/28/2020 4:28 PM (H61.23) Not Available [facility] 4 02:41:55 Temporoma ndibular joint disorder 78077233 Active 2021 Other specified disorders of temporoma ndibular joint; Note: Date Diagnosed : 03/26/2022 4:53 PM (M26.69) Not Available [facility] 4 02:41:57 Foreign body in left ear 08783530681 958364 Active 2021 Foreign body in left ear, initial encounter ; Note: Date Diagnosed : 03/26/2022 4:53 PM (T16.2XXA ) Not Available [facility] 4 02:42:08 Otalgia of left ear 8019244715 Active 2021 Otalgia, left ear; Note: Date Diagnosed : 03/26/2022 4:53 PM (H92.02) Not Available [facility] 4 02:41:56 Candidal otitis externa 34186560 Active 2019 Candidal otitis externa; Note: Date Diagnosed : 03/06/2020 3:26 PM (B37.84) Not Available [facility] 4 02:42:02 Abnormal auditory perceptio n 61215758 Active 2024 ARIANA CASTLE [address] [facility],[place] [address], [place], [address] , [place] - [facility] 5 14:20:11 Impacted cerumen in left ear 88284131207 64153 Active 2024 LLUVIA MARY PA-C [address] [facility], [place], [address] , [place] - [facility] [place] 5 17:00:33 Problem Notes None recorded. Procedures Surgical History Date Name Laterality Status Provider Name and Address Organization Details Recorded Time Cerumen removal without microscope left completed LLUVIA MARY PA-C [address] [facility], [place], [address], [place] - [facility] 03/01/2025 16:56:31 5 Air & Speech Audio with Tymps - 43414, 15958 & 03843 completed KRISTIAN FERRERA, AUD [address] [facility],[place] [address], [place], [address], [place] - [facility] 03/01/2025 14:19:24 Imaging Results None recorded. Procedure Notes None recorded. Medical Equipment None Reported. Allergies Allergen ID Allergen Name Allergen Category Reaction Reaction Severity Criticality Documentation Date Start Date Code Code System Note Provider Name and Address Organization Details Recorded Time 200421 oxycodone medicatio n other Not available Not available 03/13/2024 7804 RxNorm React ion: unkno wn, unspe cifie d;; Not Available [facility] 4 01:10:55 Medications Name Sig Start Date Stop Date Status Note LastModified by Organization Details LastModified Time cyclobenz aprine 10 mg tablet TAKE 1 TABLET BY MOUTH UP TO THREE TIMES DAILY NEEDED FOR MUSCLE PAIN/SPA SMS. DO NOT DRIVE WHILE TAKING THIS MEDICATI ON. DO NOT TAKE WITH ALCOHOL OR OTHER TRAVOGRAPH OPERATOR DEPRESSA NTS active Not Available Not Available No t Available clindamyc in HCl 300 mg capsule TAKE 1 CAPSULE BY MOUTH EVERY 12 HOURS UNTIL FINISHED 10/02 completed Not Available Not Available Not Available cetirizin e 10 mg tablet TAKE 1 TABLET BY MOUTH ONCE DAILY NEEDED FOR ALLERGY SYMPTOMS active Not Available Not Available No t Available prednison e 20 mg tablet TAKE 1 TABLET BY MOUTH TWICE DAILY FOR 5 DAYS WITH FOOD 10/02 completed Not Available Not Available Not Available permethri n 5 % topical cream APPLY TONIGHT FROM THE NECK DOWN. RINSE OFF IN THE MORNING AND WASH SHEETS. REPEAT IN 1 WEEK. 10/02 completed Not Available Not Available Not Available triamcino lone acetonide 0.1 % topical cream APPLY CREAM TOPICALL Y DAILY NEEDED FOR RASH FOR 30 DAYS 10/02 completed Not Available Not Available Not Available ofloxacin 0.3 % ear drops 4 drop 10/02 completed Medicati on ID: [id number] D uration Value: 14 Prescri bed By Name: Andre Coats MD Brand Name: ofloxaci n Send Method: E-Prescr ibed Sub s Allowed: subs OK Medic ationGen ericName : ofloxaci n Not Available Not Available Not Available clotrimaz ole 1 % topical solution Apply 5 drops to the left ear BID x 14 days active Not Available Not Available No t Available diclofena c potassium 50 mg tablet TAKE 1 TABLET BY MOUTH TWICE DAILY. DO NOT TAKE WITH ANY OTHER NONSTERO IDAL ANTI-INF LAMMATOR Y MEDICATI ONS. TAKE WITH FOOD. active Not Available Not Available No t Available omeprazol e 20 mg capsule,d elayed release TAKE 1 CAPSULE BY MOUTH ONCE DAILY active Not Available Not Available No t Available gabapenti n 100 mg capsule TAKE 1 CAPSULE BY MOUTH THREE TIMES DAILY 10/02 completed Not Available Not Available Not Available ibuprofen 600 mg tablet TAKE 1 TABLET BY MOUTH EVERY 6 HOURS NEEDED FOR PAIN active Not Available Not Available No t Available amoxicill in 875 mg-potass ium clavulana te 125 mg tablet TAKE 1 TABLET BY MOUTH TWICE DAILY FOR 10 DAYS 10/02 completed Not Available Not Available Not Available tobramyci n 0.3 %-dexamet hasone 0.1 % eye drops,gaby pension INSTILL 4 DROPS INTO LEFT EAR 4 TIMES DAILY FOR 7 DAYS 10/02 completed Not Available Not Available Not Available Premarin 0.625 mg/gram vaginal cream INSERT 0.5 GRAM VAGINALL Y TWICE A WEEK NEEDED FOR VAGINAL DRYNESS FOR 30 DAYS 10/02 completed Not Available Not Available Not Available Pain Reliever (acetamin ophen) 500 mg tablet TAKE 2 TABLETS BY MOUTH EVERY 6 HOURS NEEDED FOR PAIN active Not Available Not Available No t Available chlorhexi dine gluconate 0.12 % mouthwash FILL CAP TO THE FILL LINE (15 ML) , SWISH 15 ML IN MOUTH UNDILUTE D FOR 30 SECONDS, THEN SPIT OUT. RINSE AFTER BREAKFAS T AND BEFORE BEDTIME. 10/02 completed Not Available Not Available Not Available Vitals Date Recorded Body height Body mass index (BMI) Body weight Provider Name and Address Organization Details Last Updated DateTime 03/01/2025 165.1 cm 25.8 kg/m2 87905.82 g Kaylee Lowe [place] - [facility] 03/01/2025 14:36:35 Social History None recorded. Functional Status None recorded. Mental Status None recorded. Family History Nothing Reported. Medical History No medical history recorded. Gynecological HistoryNo gynecological history recorded. Obstetrics History GPAL:G 0 P 0 0 0 0 Past Encounters Encounter ID Performer Location Encounter Start Date Encounter Closed Date Diagnosis/Indication Diagnosis SNOMED-CT Code Diagnosis ICD10 Code Diagnosis Note [id number] LLUVIA MARY PA-C [facility] of [address] [address] 03/01/2025 14:04:36 03/01/2025 14:57:29 Abnormal auditory perception 55174850 H93.292 Right Ear:Normal hearing with excellent speech discrimina tion.Type As tympanogra m.Left Ear:Normal hearing with excellent speech discrimina tion.Type As tympanogra m, rounded. Impacted c erumen in left ear 4078317061 651318 H61.22 Health Concerns Section Related Observation LastModified by Organization Detai ls LastModified Time None Recorded Concern Status LastModified by Organization Details LastModified Time None Recorded Payers Encounter Date Sequence Insurance Name Policy Number Policy Barreto Covered Member ID Barreto Member ID Guarantor Name 03/01/2025 1 [facility] (MEDICAID HMO) [employer] Candis I Alida [id number] Candis Alida Notes Date Note Type Note Provider Name and Address Organization Details Recorded Time 03/01/2025 text/html 39yo female with TMJ and left tinnitus presents for evaluation of the ears. She reports stable left-sided tinnitus. She endorses occasional sensation of moisture and ear blockage in the left ear. Denies ear pain, drainage, or dizziness. No obvious hearing loss. ELINA BAUTISTA MD [address] [place] [address], [phone], [facility] - [facility] 03/01/2025 17:10:25 OBGyn Episode No OBEpisode recorded.
--- OUTSIDE RECORDS SUMMARY | 2025-03-06 14:11 | XMS_ITS | Encounter Summary ---
Author Organization [facility] and [facility] Address [address] [place] [phone] Care Team Providers Care Utility Accounts Director Name Role Phone Lucio Terry Primary Care Provider [phone] Encounter Details Date Type Department Care Team (Latest Contact Info) Description 08/16/2017 Transcribed [facility] - [address] [phone] Lucio Terry PA [address] [facility] [address] [place] [phone] Routine general medical examination at a health care facility (Primary Dx) Social History Tobacco Use Types Packs/Day Years [...] documented as of this encounter Visit Diagnoses Diagnosis Routine general medical examination at a health care facility- Primary documented in this encounter Care Teams Utility Accounts Director Relationship Specialty Start Date End Date Lucio Terry PA [address] [place] [phone] PCP - General 07/29/16 documented as of this encounter
--- OUTSIDE RECORDS SUMMARY | 2025-03-06 14:11 | XMS_ITS | Data Portability ---
Author Organization [place] - [facility], Allergy Address [address] [facility] [address] [place] [address] Care Team Providers Care Technology Development Intern Name Role Phone MEKA GAXIOLA Primary Care Provider [phone] Assessment Encounter Date Assessment Date Assessment LastModified by Organization Details LastModified Time 08/31/2024 08/31/2024 38-year-old female presents for evaluation of left-sided ear pain, ear blockage, and hearing loss. Examination today is consistent with cooper otitis externa of the left ear. We discussed treatment with topical clotrimazole drops versus application of Lotrisone cream. Patient elected to proceed with topical otic drops at this time. Prescription for clotrimazole was sent to the pharmacy. Advised dry ear precautions on the left. She will follow-up in 2 weeks for reevaluation, or sooner with any worsening symptoms. May consider ear culture for persistent symptoms. May also consider audiometric testing upon resolution of the infection if hearing loss persists. [email or web address] Not available 08/31/2024 11:42:01 09/19/2024 09/19/2024 38 year old female presents for follow up on left fungal otitis externa. Trialed topical Clotrimazole for 14 days with significant clinical improvement. She reports intermittent left otalgia and blockage. Otologic exam demonstrates left EAC with purulent drainage and black fungal debris, suctioned today. Canal edema and erythema improved since last visit. TMs are intact with well-aerated middle ear spaces. Offered continuation of Clotrimazole drops vs Lotrisone ointment. Patient prefers to trial Lotrisone, which was placed in the left EAC today. Will offer audiometric testing if noticeable hearing loss once infection resolves. She will return in two weeks for revaluation. [email or web address] Not available 09/19/2024 15:53:49 10/02/2024 10/02/2024 38 year old female presents for follow up on left fungal otitis externa. Patient had Lotrisone cream placed into the left EAC two weeks ago and reports hearing returned to baseline. She endorses occasional sharp left otalgia every couple days and nightly bruxism. Otologic exam demonstrates EACs without obstruction, edema, or erythema. TMs are intact with well-aerated middle ear spaces. Physical exam reveals no identifiable source of otalgia involving the auricle, external auditory canal, or tympanic membrane. Examination was positive for tenderness of the jaw joint and shonda-TMJ musculature bilaterally. The patient's auricular discomfort is most likely consistent with intermittent inflammation of the jaw joint or spasm of the surrounding musculature. I recommended the patient use light massage, warm compresses and anti-inflammato kentrell for symptomatic management. Stressed chewing evenly on both sides of the mouth to keep from overworking the jaw joint. Use soft food diet as needed. Jaw Joint Program information sheet was shared. Offered audiometric testing, but does not have time to wait today. She will return for hearing evaluation when convenient. [email or web address] Not available 10/02/2024 12:01:11 03/01/2025 03/01/2025 39yo female with left tinnitus [...] Details Last Modified Time Details Appointments None recorded. Lab None recorded. Referral None recorded. Procedures None recorded. Surgeries None recorded. Imaging None recorded. Medication Orders clotrimazol e 1 % topical solution 2023 024 [facility], [address] [place], [place] [address] [place], [address], 4 11:40:16 Patient TargetsNo targets recorded. Patient InstructionsNo instructions [...] Recorded Time Impacted cerumen of bilateral ears 76007583456 20286 Active 2019 Impacted cerumen, bilateral ; Note: Date Diagnosed : 04/28/2020 4:28 PM (H61.23) Not Available [facility] 4 02:41:55 Temporoma ndibular joint disorder 92352421 Active 2021 Other specified disorders of temporoma ndibular joint; Note: Date Diagnosed : 03/26/2022 4:53 PM (M26.69) Not Available [facility] 4 02:41:57 Foreign body in left ear 72792071607 113611 Active 2021 Foreign body in left ear, initial encounter ; Note: Date Diagnosed : 03/26/2022 4:53 PM (T16.2XXA ) Not Available [facility] 4 02:42:08 Otalgia of left ear 0468596050 Active 2021 Otalgia, left ear; Note: Date Diagnosed : 03/26/2022 4:53 PM (H92.02) Not Available [facility] 4 02:41:56 Candidal otitis externa 91422714 Active 2019 Candidal otitis externa; Note: Date Diagnosed : 03/06/2020 3:26 PM (B37.84) Not Available [facility] 4 02:42:02 Abnormal auditory perceptio n 22763784 Active 2024 KRISTIAN FERRERA, [address],[place] [address], [place], [phone] , [facility] - [facility] 5 14:20:11 Impacted cerumen in left ear 05636595108 00656 Active 2024 LLUVIA MARY PA-C [address] [facility],[place] [address], [place], [address] , [facility] - [facility] 5 17:00:33 Problem Notes None recorded. Procedures Surgical History Date Name Laterality Status Provider Name and Address Organization Details Recorded Time 5 Cerumen removal without microscope left completed LLUVIA MARY PA-C [address] [facility],[place] [address], [place], [address], [facility] - [facility] 03/01/2025 16:56:31 5 Air & Speech Audio with Tymps - 97617, 03712 & 66289 completed ARIANA CASTLE [address] [facility],[place] [address], [place], [address], [facility] - [facility] 03/01/2025 14:19:24 Imaging Results Imaging Date Name Status LastModified by Organiz ation Details LastModified Time 03/01/2025 audiogram completed BARCODE Information no t available 03/01/2025 16:30:19 Procedure Notes None recorded. Medical Equipment None Reported. Allergies Allergen ID Allergen Name Allergen Category Reaction Reaction Severity Criticality Documentation Date Start Date Code Code System Note Provider Name and Address Organization Details Recorded Time 934352 oxycodone medicatio n other Not available Not available 03/13/2024 7804 RxNorm React ion: unkno wn, unspe cifie d;; Not Available [facility] 4 01:10:55 Medications Name Sig Start Date Stop Date Status Note LastModified by Organization Details LastModified Time cyclobenz aprine 10 mg tablet TAKE 1 TABLET BY MOUTH UP TO THREE TIMES DAILY NEEDED FOR MUSCLE PAIN/SPA SMS. DO NOT DRIVE WHILE TAKING THIS MEDICATI ON. DO NOT TAKE WITH ALCOHOL OR OTHER WEB PRESS OPERATOR DEPRESSA NTS active Not Available Not [...] 4 drop 10/02 completed Medicati on ID: [id number] D uration Value: 14 Prescri bed By [...] Updated DateTime 03/01/2025 165.1 cm 25.8 kg/m2 11656.82 g Kaylee Lowe [facility] 03/01/2025 14:36:35 Date Recorded Body height Body mass index (BMI) Body weight Provider Name and Address Organization Details Last Updated DateTime 09/19/2024 165.1 cm 26.6 kg/m2 31797.78 g Glenn Trevizo [facility] 09/19/2024 15:29:18 Date Recorded Body height Body mass index (BMI) Body weight Provider Name and Address Organization Details Last Updated DateTime 10/02/2024 165.1 cm 29.3 kg/m2 32980.26 g Quin Pires [facility] 10/02/2024 11:32:57 Social History None recorded. Functional Status None recorded. Mental Status None recorded. Family History Nothing Reported. Medical History No medical history recorded. Gynecological HistoryNo gynecological history recorded. Obstetrics History GPAL:G 0 P 0 0 0 0 Past Encounters Encounter ID Performer Location Encounter Start Date Encounter Closed Date Diagnosis/Indication Diagnosis SNOMED-CT Code Diagnosis ICD10 Code Diagnosis Note [id number] ALMA GUDINO PA-C [facility] of [address] [address] 08/31/2024 10:22:36 08/31/2024 11:26:02 Candidal otitis externa 05578615 B37.84 [id number] LLUVIA MARY PA-C [facility] [address] [address] 09/19/2024 15:16:22 09/19/2024 15:49:35 Candidal otitis externa 90135703 B37.84 [id number] LLUVIA MARY PA-C [facility] [address] [address] 10/02/2024 11:26:57 10/02/2024 11:51:53 Otalgia of left ear 9845155189 H92.02 Temporoman dibular joint disorder 79167003 M26.69 Candidal o titis externa 59453083 B37.84 [id number] LLUVIA MARY PA-C [facility] [address] [place] [address] 03/01/2025 14:04:36 03/01/2025 14:57:29 Abnormal auditory perception 38722427 H93.292 Right Ear:Normal hearing with excellent speech discrimina tion.Type As tympanogra m.Left Ear:Normal hearing with excellent speech discrimina tion.Type As tympanogra m, rounded. Impacted c erumen in left ear 8351274999 401183 H61.22 Health Concerns Section Related Observation LastModified by Organization Detai ls LastModified Time None Recorded Concern Status LastModified by Organization Details LastModified Time None Recorded Advance Directives Directive None Recorded Payers Insurance Date Sequence Insurance Name Policy Number Policy Barreto Covered Member ID Barreto Member ID Guarantor Name 08/31/2024 1 [facility] (MEDICAID HMO) Candis Alida [id number] Candis Alida 03/01/2025 1 [facility] (MEDICAID HMO) MARCIE Chirinos I Alida [id number] Candis Alida 08/31/[address] [facility] (MEDICAID REPLACEMENT - HMO) Candis Alida [id number] Candis Alida Notes Date Note Type Note Provider Name and Address Organization Details Recorded Time 08/31/2024 text/html 38-year-old lizett melo presents for evaluation of left-sided ear pain, ear blockage, and hearing loss. Symptoms started 2 weeks ago and she was treated with a course of Augmentin and topical antibiotic eardrops (unsure the name of the medication). She reports otalgia has improved, but she continues to have ear blockage and hearing loss in the left ear. Denies otorrhea. Denies prior otologic surgery or history of chronic ear infections. ELINA BAUTISTA MD [address] [facility] [place] [place] [address], [place], [address], [facility] 09/02/2024 07:05:52 09/19/2024 text/html 38 year old lizett melo presents for follow up on left fungal otitis externa. Trialed topical Clotrimazole for 14 days. Reports intermittent throbbing aching left otalgia. Occasional left ear blockage. Denies otorrhea. CK RAYMUNDO MD [address] [facility] [place],[address], [phone], [facility] 09/19/2024 16:36:47 10/02/2024 text/html 38 year old lizett melo presents for follow up on left fungal otitis externa. She trialed topical Clotrimazole for 14 days with some clinical improvement and then Lotrisone cream was placed two weeks ago. She reports intermittent sharp left otalgia every couple days. The pain lasts seconds and is improving. Ear blockage resolved. Reports hearing has returned to normal. GARRICK TOBAR MD [address] [facility],[address], [address], [facility] 10/03/2024 17:47:30 03/01/2025 text/html 39yo female with TMJ and left tinnitus presents for evaluation of the ears. She reports stable left-sided tinnitus. She endorses occasional sensation of moisture and ear blockage in the left ear. Denies ear pain, drainage, or dizziness. No obvious hearing loss. ELINA BAUTISTA MD [address] [facility] [address],[place] [facility], [place], [address], [facility] - [facility] 03/01/2025 17:10:25 OBGyn Episode No OBEpisode recorded.
--- OUTSIDE RECORDS SUMMARY | 2025-03-06 14:11 | XMS_ITS | Continuity of Care Document ---
Author Organization [facility] Address [address] [place] [address] Phone Care Team Providers Care Carroter Name Role Phone Serina Price RDH Unavailable [...] Diagnoses Date Provider Providers Copied on Encounter [facility], [address] [place], [place], [address], [place] tel:[phone] [facility] Dental Encounter for dental exam and cleaning w/o abnormal findings Raúl Smalls. [address] [place], [place], [id number]. tel:[phone] [facility], [address], [place], [address], [place] tel:[phone] [facility] [place] Dental Dental examination Jaya Garcia. [address] [place], [address]. tel:[phone] [facility], [address], [place], [id number], tel:[phone] [facility] [place] Dental dental (chief complaint) Dental examination Jade Tabares. [address] [place], [place], [address]. tel:[phone] Family History Family Member Type Diagnosis Age At Onset No Information Payers Payer name Insurance type Covered constitution party ID chetna nancyreynaldo(s) D Medicaid [place] [facility] [id number] Social History Type Description Quantity Date Captured [...]
--- OUTSIDE RECORDS SUMMARY | 2025-03-06 14:11 | XMS_ITS | Encounter Summary ---
Author Organization [facility] Care Team Providers Care Systems Integrator Name Role Phone Lucio Terry Primary Care Provider [phone] Encounter Details Date Type Department Care Team ([facility] Contact Info) Description 06/30/2016 Scanned Document [facility] [address] [place] [address], [address] [place] [address] External, Provider Social History Tobacco Use Types [...] on filedocumented in this encounter Care Teams Systems Integrator Relationship Specialty Start Date End Date Lucio Terry PA [address] [place] [phone] PCP - General 07/29/16 documented as of this encounter
== END 2025-03-06 13:31 | disposition home or self-care (01) ==
PROVIDERS: PCP Internal Medicine; Visit Provider Internal Medicine
DX: M54.16 Radiculopathy, lumbar region (principal); R20.2 Paresthesia of skin; M79.672 Pain in left foot; G58.8 Other specified mononeuropathies

== ENCOUNTER → 2025-03-06 13:40 | Outpatient (BNV) | payer OTHER, SELFPAY | PROVIDERS: PCP Internal Medicine; Visit Provider Radiology Diagnostic Radiology | DX: M79.672 Pain in left foot (principal) | CPT/HCPCS: 73620 ==

== ENCOUNTER 2025-03-13 16:02 | Outpatient (AMB) | payer OTHER, SELFPAY ==
--- OUTSIDE RECORDS SUMMARY | 2025-03-13 16:04 | XMS_ITS | Encounter Summary ---
Author Organization [place] [facility] Care Team Providers Care Pastry Wrapper Name Role Phone Lucio Terry Primary Care Provider [phone] Encounter Details Date Type Department Care Team (Late st Contact Info) Description 06/30/2016 Scanned Document [facility] [address] [place] [address], [address] [place] [address] External, Provider Social History Tobacco Use Types [...] SCAN REPORTS Final Result Performing Organization Address City/[facility] Co de Phone Number [facility] [place], [place], [place] * CT Result Scan (06/30/2016) us Provider External IMG SCAN REPORTS Final Result [facility] [place], [place] * [place] Result Scan (06/30/2016) us Provider External IMG SCAN REPORTS Final Result Performing Organization Address [facility] Co de Phone Number [facility] * [place] Result Scan (06/30/2016) us Provider External IMG SCAN REPORTS Final Result Performing Organization Address [facility] Co de Phone Number [facility] * Lab Scan (06/30/2016) Blood specimen (specimen) us Provider External LAB BLOOD ORDERABLES Final Res ult Performing Organization Address [facility] Co de Phone Number [facility] documented in this encounter Visit Diagnoses Not on filedocumented in this encounter Care Teams Pastry Wrapper Relationship Specialty Start Date End Date Lucio Terry PA [address] [place] [phone] PCP - General 07/29/16 documented as of this encounter
--- OUTSIDE RECORDS SUMMARY | 2025-03-13 16:04 | XMS_ITS | Encounter Summary ---
Author Organization [facility] Care Team Providers Care Accountant Systems Name Role Phone Lucio Terry Primary Care Provider [phone] Encounter Details Date Type Department Care Team ([facility] Contact Info) Description 06/30/2016 Scanned Document [facility] [address] [place] [address], [address] [place] [address] External, Provider Social History Tobacco Use Types [...] on filedocumented in this encounter Care Teams Accountant Systems Relationship Specialty Start Date End Date Lucio Terry PA [address] [place] [phone] PCP - General 07/29/16 documented as of this encounter
--- OUTSIDE RECORDS SUMMARY | 2025-03-13 16:04 | XMS_ITS | Continuity of Care Document ---
Author Organization [facility] Address [address] [place] [address] Phone Care Team Providers Care Vp & General Counsel Name Role Phone Serina Price RDH Unavailable Unavaila ble Allergies, Adverse Reactions, Alerts Substance Reaction Status Criticality oxycodone Fever Active No Information Medications Medication Instructions Dosage Effective Dates (start - stop) Status Comments DHA 200 mg capsule - Active Zofran 8 mg tablet - Active Carafate 100 mg/mL oral suspension - Active Problems Condition Type Effective Dates [...] Diagnoses Date Provider Providers Copied on Encounter [facility], [address] [place], [place], [id number], [place] tel:[phone] [facility] Dental Encounter for dental exam and cleaning w/o abnormal findings Raúl Smalls. [address] [place], [place], [id number]. tel:[phone] [facility], [address] [place], [place], [address], [place] tel:[phone] [facility] Dental Dental examination Jaya Garcia. [address] [place], [address]. tel:[phone] [facility], [address] [place], [place], [address], tel:[phone] [facility] Dental dental (chief complaint) Dental examination Jade Tabares. [address] [place], [place], [address]. tel:[phone] Family History Family Member Type Diagnosis Age At Onset No Information Payers Payer name Insurance type Covered green party ID chetna nancyreynaldo(s) D Medicaid [place] [facility] [id number] Social History Type Description Quantity Date Captured [...]
--- OUTSIDE RECORDS SUMMARY | 2025-03-13 16:04 | XMS_ITS | Data Portability ---
Author Organization [place] [facility] Address [address] [facility] [address] [place] [address] Care Team Providers Care Lace Mender Name Role Phone MEKA GAXIOLA Primary Care Provider Assessment Encounter Date Assessment Date Assessment LastModified [...] of the infection if hearing loss persists. [email or web address] Not available 08/31/2024 11:42:01 09/19/2024 09/19/2024 38 [...] e 1 % topical solution 2023 024 [facility], [address] [place], [place] [address] [place], [address], 4 11:40:16 Patient TargetsNo targets recorded. 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 Other specified disorders of temporoma ndibular joint; Note: Date Diagnosed : 03/26/2022 4:53 PM (M26.69) Not Available [facility] 4 02:41:57 Foreign body in left ear 96205991414 487599 Active 2021 Foreign body in left ear, initial encounter ; Note: Date Diagnosed : 03/26/2022 4:53 PM (T16.2XXA ) Not Available [facility] 4 02:42:08 Otalgia of left ear 7624438913 Active 2021 Otalgia, left ear; Note: Date Diagnosed : 03/26/2022 4:53 PM (H92.02) Not Available [facility] 4 02:41:56 Candidal otitis externa 33592501 Active 2019 Candidal otitis externa; Note: Date Diagnosed : 03/06/2020 3:26 PM (B37.84) Not Available [facility] 4 02:42:02 Abnormal auditory perceptio n 61876192 Active 2024 KRISTIAN FERRERA, [address],[place] [address], [place], [address] , [facility] - [facility] 5 14:20:11 Impacted cerumen in left ear 81533102432 13575 Active 2024 LLUVIA MARY PA-C [address] [facility],[place] [address], [place], [address] , [facility] - [facility] 5 17:00:33 Problem Notes None recorded. Procedures Surgical History Date Name Laterality Status Provider Name and Address Organization Details Recorded Time 5 Cerumen removal without microscope left completed LLUVIA MARY PA-C [address] [facility],[place] [address], [place], [address], [facility] - [facility] 03/01/2025 16:56:31 5 Air & Speech Audio with Tymps - 08229, 37690 & 13340 completed ARIANA CASTLE [address] [facility],[place] [address], [place], [address], [facility] - [facility] 03/01/2025 14:19:24 Imaging Results Imaging Date Name Status LastModified by Organiz ation Details LastModified Time 03/01/2025 audiogram completed [facility] Information no t available 03/01/2025 16:30:19 Procedure Notes None recorded. Medical Equipment None Reported. Allergies Allergen ID Allergen Name Allergen Category Reaction Reaction Severity Criticality Documentation Date Start Date Code Code System Note Provider Name and Address Organization Details Recorded Time 676109 oxycodone medicatio n other Not available Not available 03/13/2024 7804 RxNorm React ion: unkno wn, unspe cifie d;; Not Available [facility] 4 01:10:55 Medications Name Sig Start Date Stop Date Status Note LastModified by Organization Details LastModified Time cyclobenz aprine 10 mg tablet TAKE 1 TABLET BY MOUTH UP TO THREE TIMES DAILY NEEDED FOR MUSCLE PAIN/SPA SMS. DO NOT DRIVE WHILE TAKING THIS MEDICATI ON. DO NOT TAKE WITH ALCOHOL OR OTHER LOCAL GOVERNMENT LEGISLATOR DEPRESSA NTS active Not Available Not Available [...] 4 drop 10/02 completed Medicati on ID: [id number] D uration Value: 14 Prescri bed By [...] Updated DateTime 03/01/2025 165.1 cm 25.8 kg/m2 45518.82 g Kaylee Lowe [facility] 03/01/2025 14:36:35 Date Recorded Body height Body mass index (BMI) Body weight Provider Name and Address Organization Details Last Updated DateTime 09/19/2024 165.1 cm 26.6 kg/m2 36144.78 g Glenn Trevizo [facility] 09/19/2024 15:29:18 Date Recorded Body height Body mass index (BMI) Body weight Provider Name and Address Organization Details Last Updated DateTime 10/02/2024 165.1 cm 29.3 kg/m2 80456.26 g Quin Pires [facility] 10/02/2024 11:32:57 Social History None recorded. Functional Status None recorded. Mental Status None recorded. Family History Nothing Reported. Medical History No medical history recorded. Gynecological HistoryNo gynecological history recorded. Obstetrics History GPAL:G 0 P 0 0 0 0 Past Encounters Encounter ID Performer Location Encounter Start Date Encounter Closed Date Diagnosis/Indication Diagnosis SNOMED-CT Code Diagnosis ICD10 Code Diagnosis Note [id number] ALMA GUDINO PA-C [facility] [address] [address] 08/31/2024 10:22:36 08/31/2024 11:26:02 Candidal otitis externa 61385895 B37.84 [id number] LLUVIA MARY PA-C [facility] [address] [address] 09/19/2024 15:16:22 09/19/2024 15:49:35 Candidal otitis externa 15166310 B37.84 [id number] LLUVIA MARY PA-C [facility] [address] [address] 10/02/2024 11:26:57 10/02/2024 11:51:53 Otalgia of left ear 9867775857 H92.02 Temporoman dibular joint disorder 62485031 M26.69 Candidal o titis externa 41978036 B37.84 [id number] LLUVIA MARY PA-C [facility] [address] [place] [address] 03/01/2025 14:04:36 03/01/2025 14:57:29 Abnormal auditory perception 82001609 H93.292 Right Ear:Normal hearing with excellent speech discrimina tion.Type As tympanogra m.Left Ear:Normal hearing with excellent speech discrimina tion.Type As tympanogra m, rounded. Impacted c erumen in left ear 3268602079 471896 H61.22 Health Concerns Section Related Observation LastModified by Organization Detai ls LastModified Time None Recorded Concern Status LastModified by Organization Details LastModified Time None Recorded Advance Directives Directive None Recorded Payers Insurance Date Sequence Insurance Name Policy Number Policy Barreto Covered Member ID Barreto Member ID Guarantor Name 08/31/2024 1 [facility] (MEDICAID HMO) Candis Alida [id number] Candis Alida 03/01/2025 1 [facility] (MEDICAID HMO) MARCIE Chirinos I Alida [id number] Candis Alida 08/31/2024 1 [facility] (MEDICAID REPLACEMENT - HMO) Candis Alida [id number] Candis Alida Notes Date Note Type Note [...] chronic ear infections. ELINA BAUTISTA MD [address] [facility] [place] [address], [place], [address], [facility] 09/02/2024 07:05:52 09/19/2024 text/html 38 year old lizett melo presents for follow up on left fungal otitis externa. Trialed topical Clotrimazole for 14 days. Reports intermittent throbbing aching left otalgia. Occasional left ear blockage. Denies otorrhea. CK RAYMUNDO MD [address] [facility] [place],[address], [address], [facility] 09/19/2024 16:36:47 10/02/2024 text/html 38 year [...] returned to normal. GARRICK TOBAR MD [address] [facility],[address], [address], [facility] 10/03/2024 17:47:30 03/01/2025 text/html 39yo female with TMJ and left tinnitus presents for evaluation of the ears. She reports stable left-sided tinnitus. She endorses occasional sensation of moisture and ear blockage in the left ear. Denies ear pain, drainage, or dizziness. No obvious hearing loss. ELINA BAUTISTA MD [address],[place] [facility], [place], [address], [facility] - [facility] 03/01/2025 17:10:25 OBGyn Episode No OBEpisode recorded.
--- OUTSIDE RECORDS SUMMARY | 2025-03-13 16:04 | XMS_ITS | Encounter Summary ---
Author Organization [facility] Care Team Providers Care Forest Logistics Manager Name Role Phone Lucio Terry Primary Care Provider [phone] Encounter Details Date Type Department Care Team ([facility] Contact Info) Description 06/30/2016 Scanned Document [facility] [address] [place] [address], [address] [place] [address] External, Provider Social History Tobacco Use Types [...] on filedocumented in this encounter Care Teams Forest Logistics Manager Relationship Specialty Start Date End Date Lucio Terry PA [address] [place] [phone] PCP - General 07/29/16 documented as of this encounter
--- OUTSIDE RECORDS SUMMARY | 2025-03-13 16:04 | XMS_ITS | Encounter Summary ---
Author Organization [facility] Address [address] [place] [address] Care Team Providers Care Fur Feeder Name Role Phone Lucio Terry Primary Care Provider [phone] Encounter Details Date Type Department Care Team ([facility] st Contact Info) Description 03/24/2021 Orders Only Gynecology [address] [place], [place] [address] Cyndy Pittman, DO [address] [place] [address] [id number] [place] [address] Social History Tobacco Use Types [...] on filedocumented in this encounter Care Teams Fur Feeder Relationship Specialty Start Date End Date Lucio Terry PA [address] [place] [phone] PCP - General 07/29/16 documented as of this encounter
--- OUTSIDE RECORDS SUMMARY | 2025-03-13 16:04 | XMS_ITS | Encounter Summary ---
Author Organization [facility] Address [address] [place] [phone] Care Team Providers Care Patrol Captain Name Role Phone Lucio Terry Primary Care Provider [phone] Encounter Details Date Type Department Care Team (Latest Contact Info) Description 08/16/2017 Transcribed [facility] [address] [phone] Lucio Terry PA [address] [facility] [address] [place] [phone] Routine general medical examination at a health [...] Primary documented in this encounter Care Teams Patrol Captain Relationship Specialty Start Date End Date Lucio Terry PA [address] [place] [phone] PCP - General 07/29/16 documented as of this encounter
--- OUTSIDE RECORDS SUMMARY | 2025-03-13 16:04 | XMS_ITS | Clinical Summary ---
Author Organization [address] Address [address] [place] [address] Care Team Providers Care Truck Dispatcher Name Role Phone Lucio Terry Primary Care Provider [phone] Allergies Active Allergy Reactions Criticality Noted Date [...] on file MGD on file Care Teams Truck Dispatcher Relationship Specialty Start Date End Date Lucio Terry PA [address] [place] [phone] PCP - General 07/29/16
--- NOTE | 2025-03-13 16:07 | A.OFFPC_ITS ---
Vital Signs 03/13/25 16:08 Height 5 ft 5 in Weight 163 lb BMI 27.1 BP 114/76 Blood Pressure Location Lt brachial Position Sitting Intake Visit Reasons: Annual PE Intake Note: Patient here for an annual physical exam Film Process Operator Required: No Accompanied by: Self / Same As Patient Allergies morphine [MORPHINE] Allergy (Unknown, Verified 03/13/25 16:17) HIVES oxycodone [OXYCODONE] Allergy (Unknown, Verified 03/13/25 16:17) HIVES Medication List - Last Reconciled 03/13/25 by Sofia Stephens MD acetaminophen 1,000 mg (2 x 500 mg) PO Q6H PRN cetirizine (Allergy Relief (cetirizine)) 10 mg PO DAILY PRN 90 days cyclobenzaprine 10 mg PO TID PRN diclofenac sodium 75 mg PO BID 10 days gabapentin 100 mg PO TID levonorgestrel (Mirena) intrauterine methylprednisolone (Medrol (Luciano)) PO PER PKG DIR 6 days omeprazole 20 mg PO DAILY 30 days triamcinolone acetonide 0.1% 1 appl topical DAILY PRN 30 days Tobacco use date assessed: 03/13/25 Dental Screening Dental Screen Date: 03/13/25 Did you have a dental visit in the last 12 months?: Yes Did you have a dental problem in the last 6 months where you did not have access to dental care?: No Was dental information given to patient?: Patient has dentist HPI HPI Comments History of Present Illness Details The patient is a 39-year-old female presenting for a routine physical examination and to discuss management of her sciatica symptoms. She describes a history of worsening left-sided sciatic pain with no associated back pain, becoming significantly debilitating. The pain radiates to the left leg and has worsened despite various treatments. Prednisone has shown to provide relief following past pain management consultation. The patient seeks advice on recurrent management strategies including short-term prednisone use. She has noted a past slightly elevated cholesterol level, warranting follow-up lipid profile assessment. The patient also presents her medication status and affirmatively reports systemic wellness, dismissing depression while documenting infrequent alcohol use. Physical activities are controlled, impacting her weight fluctuations with maintained vigilance over her diet. - Recent Tdap vaccine given in 2021; nex t due in 2031 - Pap smear conducted in 2020; negative HPV result - Follow-up with COPY LATHE OPERATOR scheduled in [facility] - Blood work pending for cholesterol noel ck due to prior elevated levels - Regular monitoring of hemoglobin, kidn ey function, blood sugar levels, and thyroid function; previously normal [facility] Medical History Gestational diabetes Pain in pelvis delivery affecting Right shoulder pain Subclinical hyperthyroidism Vitamin D deficiency Goiter History of gestational diabetes History of pre-eclampsia Depression History of placenta abruption Surgical History H/O section H/O shoulder surgery Family History Father Heart attack, Onset Age: 55 HTN (hypertension) CVD (cardiovascular disease) Mother HTN (hypertension) DMII (diabetes mellitus, type 2) Social History (Updated 03/13/25 @ 16:23 by Sofia Stephens MD) Housing: Apartment Alcohol intake: current Alcohol intake frequency: a few times a month Alcohol type: wine Patient Tobacco Use Status: Never used Tobacco e-Cigarette/Vaping Use: Never Used Second Hand Smoke Exposure: No Substance Use Type: Marijuana service: No Current occupational status: employed 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 1. Little interest or pleasure in doing things: not at all 2. Feeling down, depressed, or hopeless: not at all 3. Trouble falling or staying asleep, or sleeping too much: not at all 4. Feeling tired or having little energy: not at all 5. Poor appetite or overeating: not at all 6. Feeling bad about yourself - or that you are a failure or have let yourself or your family down: not at all 7. Trouble concentrating on things, such as reading the newspaper or watching television: not at all 8. Moving or speaking so slowly that other people could have noticed. Or the opposite - being so fidgety or restless that you have been moving around a lot more than usual: not at all 9. Thoughts that you would be better off or of hurting yourself in some way: not at all Total score: 0 Depression Screening Interpretation: Negative Depression Screening Done: Yes 25208 - PHQ-9 Billing: Yes Source: Developed by Drs. Bill Coleman, Cintia Eagle, Anand Gamboa and colleagues, with an educational sterling from [employer]. Thrive Questionnaire Date Thrive assessed: 03/13/25 I am a: Patient What is your living situation today?: I have a steady place to live Within the past 12 months, did the food you bought not last and you didn't have the money to get more?: Never true Within the past 12 months, did you worry whether your food would run out before you got money to buy more?: Never true Do you have trouble paying for medicines?: No Do you have trouble getting transportation to medical appointments?: No Do you have trouble paying your heating and electricity bill?: No Do you have trouble taking care of your child, family member or friend?: No Do you have trouble with day-to-day activities such as bathing, preparing meals, shopping, managing finances, etc.?: No Are you currently unemployed and looking for a job?: No Are you interested in more education?: No Please select the resources that you would like help with: None Currently or been in a relationship where the following occur: No concerns reported THRIVE Score: 0 AUDIT C Alcohol Use Questionnaire (AUDIT-C) 1. How often do you have a drink containing alcohol?: Monthly or less 2. How many drinks containing alcohol do you have on a typical day when you are drinking?: 1 or 2 3. How often do you have six or more drinks on one occasion?: Never Total Score: 1 Score Reviewed/Action Taken: No NAM-7 AMB Questionnaire NAM-7 Date NAM - 7 assessed: 03/13/25 Feeling nervous, anxious, or on edge: 0 = Not at all Not being able to stop or control worryin = Not at all Worrying too much about different things: 3 = Nearly every day Trouble relaxin = Nearly every day Being so restless that it is hard to sit still: 0 = Not at all Becoming easily annoyed or irritable: 0 = Not at all Feeling afraid as if something awful might happen: 0 = Not at all Total NAM-7 score (0-4 normal; 5-9 mild; 10-14 moderate; 15-21 severe): 6 Source: Developed by Drs. Bill Coleman, Cintia Eagle, Anand Gamboa and colleagues, with an educational sterling from [employer]. NAM-7 Assessment Billing NAM-7 Assessment Tool: NAM-7 Assessment 33726 Review of Systems Const All systems reviewed & are unremarkable except as noted in HPI and below Card Denies chest pain at rest, Denies chest pain with activity, Denies edema, Denies irregular heart rhythm, Denies claudication, Denies dyspnea, Denies dyspnea on exertion, Denies orthopnea, Denies paroxysmal nocturnal dyspnea and Denies slow heart rate Resp Denies cough, Denies dyspnea and Denies dyspnea on exertion Physical exam (Primary Care) Vital Signs: Last Vital Signs BP 114/76 03/13/25 16:08 BMI result Body Mass Index 27.1 Tobacco/Smoking Status: Tobacco use Status Tobacco use date assessed 03/13/25 03/13/25 16:12 Patient Tobacco Use Status Never used Tobacco 03/13/25 16:23 Tobacco use type 08/20/24 08:45 e-Cigarette/Vaping Use Never Used 03/13/25 16:23 PHQ-9: PHQ-9 Score PHQ-9: Total score 0 03/13/25 16:18 Depression Screening Interpretation: Negative Thrive Assessment: Date of Thrive Assessment Date Thrive assessed 03/13/25 03/13/25 16:12 Currently or been in a relationship where the following occur: No concerns reported [facility] Head: Yes normal to inspection, Yes normocephalic and Yes atraumatic Ears: external ears normal Eyes General: appearance normal, both eyes and all related structures Eyelids: Yes eyelids normal Conjunctivae: conjunctivae normal Neck Neck: Yes normal visual inspection and Yes supple Resp Effort & Inspection: normal respiratory effort Auscultation: clear to auscultation bilaterally Cardio Jugular venous distension: no JVD Rate: regular rate Rhythm: regular rhythm Heart sounds: S1 normal heart sound present and S2 normal heart sound present GI Inspection: Yes normal to inspection Palpation (GI): Soft to palpation and nontender Auscultation: normal bowel sounds Skin General skin exam: no rashes or lesions noted Neuro General: no focal motor deficits Extrem General: Yes full ROM Psych Appearance: grossly normal Coding Level of Care Code Est Pt Level 3 (85512) Est Pt Prev Care 18-39y(79352) Diagnoses Annual physical exam Z00.00 Lumbar radiculopathy M54.16 Additional Codes NAM-7 Assessment Billing - NAM-7 Assessment Tool: NAM-7 Assessment 19815 ([id number]) PHQ-9 - 31553 - PHQ-9 Billing: Yes ([id number]) Time Spent (min) 35 Assessment & Plan Assessment & Plan (1) Annual physical exam: Code(s): Z00.00 - Encounter for general adult medical examination without abnormal findings Category: Medical (2) Lumbar radiculopathy: Code(s): M54.16 - Radiculopathy, lumbar region Category: Medical Plan The sciatica will be addressed with the short-term use of prednisone for acute episodes, ensuring management within safe parameters to reduce risk of long-term complications like osteoporosis. Exploration of further interventional solutions through pain management is advised, including consideration of steroid injections, as prior mentioned drug relief through oral steroids was noted. Blood work will reassess lipid levels to guide further cholesterol management strategies. Health screenings and follow-ups including gynecological care remain timely. Continued vigilance concerning weight management, with informed dietary engagement, is reinforced. Patient was informed and verbally consented to the use of an ambient scribe for clinic note documentation during this visit. I discussed the practicality of prednisone for acute sciatic pain relief, underlining the imperative of limiting exposure to avert long-term corticosteroid-induced complications. Collaborative dialogue concerning potential interventions through pain management, inclusive of steroid injections, was revisited. The necessity of fasting prior to cholesterol revaluation, and timely follow-up with test results, was also emphasized. The patient has been advised to connect with prior pain treatment services without necessitating my referral, maintaining proactive symptom oversight. Orders: Orders Comprehensive [place]. Panel Fast Today Z00.00 - Encounter for general adult medical examination without abnormal findings Vitamin D 25-OH Total Today E55.9 - Vitamin D deficiency, unspecified Thyroid Stimulating Hormone Today E05.90 - Thyrotoxicosis, unspecified without thyrotoxic crisis or storm Lipid Panel Today E78.5 - Hyperlipidemia, unspecified, Z00.00 - Encounter for general adult medical examination without abnormal findings Complete Blood Count Auto Diff Today D50.9 - Iron deficiency anemia, unspecified, D64.9 - Anemia, unspecified IRON PROFILE Today D50.9 - Iron deficiency anemia, unspecified, D64.9 - Anemia, unspecified Vitamin B12 and Folate Today E53.8 - Deficiency of other specified B group vitamins Patient Instructions: - Use prednisone as directed for severe sciatic pain for short durations only. - Contact pain management to discuss potential treatments including injections. - Schedule and complete fasting blood work for cholesterol testing. - Maintain current vaccination schedule, including routine COPY LATHE OPERATOR appointments. - Continue mindful dietary habits and limit alcohol intake to occasional use. - Report any new or worsening symptoms promptly.
[2025-03-13 16:08] VITALS: BP 114/76; BMI 27.1
== END 2025-03-13 16:34 | disposition home or self-care (01) ==
LOC: HO.HMCH 16:03
PROVIDERS: PCP Internal Medicine; Visit Provider Internal Medicine
DX: Z00.00 Encounter for general adult medical examination without abnormal findings (principal); M54.16 Radiculopathy, lumbar region

== ENCOUNTER → 2025-03-13 16:02 | Outpatient (BNVA) | payer OTHER, SELFPAY | PROVIDERS: PCP Internal Medicine; Visit Provider Internal Medicine | DX: Z00.00 Encounter for general adult medical examination without abnormal findings (principal); M54.32 Sciatica, left side; M54.16 Radiculopathy, lumbar region; E55.9 Vitamin D deficiency, unspecified; E78.5 Hyperlipidemia, unspecified; D50.9 Iron deficiency anemia, unspecified; E53.8 Deficiency of other specified B group vitamins | CPT/HCPCS: 96127; 99212; 99395 ==

== ENCOUNTER 2025-07-23 13:12 | Outpatient (REF) | payer OTHER, SELFPAY ==
[2025-07-24 02:43] LABS: Bacterial Vaginosis PCR NEGATIVE (Negative); Candida Group PCR NOT DETECTED (Not Detect); Candida glab krusei PCR NOT DETECTED (Not Detect); Trichomonas vaginalis PCR NOT DETECTED (Not Detect)
[2025-07-24 03:13] LABS: CT PCR NOT DETECTED (Not Detect.); NG PCR NOT DETECTED (Not Detect.)
== END 2025-07-23 13:13 | disposition home or self-care (01) ==
LOC: HO.LNP 13:12
PROVIDERS: PCP Internal Medicine; Visit Provider Advanced Practice Midwife
DX: Z01.419 Encounter for gynecological examination (general) (routine) without abnormal findings (principal); R10.2 Pelvic and perineal pain; G89.29 Other chronic pain; Z20.2 Contact with and (suspected) exposure to infections with a predominantly sexual mode of transmission
CPT/HCPCS: 81515; 87491; 87591; 99395

== ENCOUNTER 2025-07-23 13:12 | Outpatient (AMB) | payer OTHER, SELFPAY ==
--- OUTSIDE RECORDS SUMMARY | 2017-08-26 09:00 | XMS_ITS | Continuity of Care Document ---
Author Organization [facility] Address [address] [place] [address] Phone Care Team Providers Care Implementation Manager Name Role Phone Serina Price RDH Unavailable Unavaila ble Allergies, Adverse Reactions, Alerts Substance Reaction Status Criticality oxycodone Fever Active No Information Medications Medication Instructions Dosage Effective Dates (start - stop) Status Comments Carafate 100 mg/mL oral suspension - Active Zofran 8 mg tablet - Active DHA 200 mg capsule - Active Problems Condition Type Effective Dates (start - stop) Clini carlin Status Comments No Known Problems Procedures Procedure Date Prophylaxis Adult Dental Plan Complete Prophylaxis Adult Dental Plan Complete New Dental Patient Bitewings Four Films Comprehensive Oral Evaluatio n New Or Established Caries Risk Assess, Finding Mod Risk Jan Excluded From Sealants Advance Directives Directive Yes / No Effective Date File Name No Information Encounters Encounter Description Practice Location Reason(s) For Visit Diagnoses Date Provider Providers Copied on Encounter [facility], [address], [place], [id number], [place] tel:[phone] [facility] Encounter for dental exam and cleaning w/o abnormal findings Raúl Smalls. [address], [place], [id number]. tel:[phone] [facility], [address], [place], [id number], [place] tel:[phone] [facility] Dental examination Jaya Garcia. [address] [place], [address]. tel:[phone] [facility], [address], [place], [id number], tel:[phone] [facility] dental (chief complaint) Dental examination Jade Tabares. [address], [place], [id number]. tel:[phone] Family History Family Member Type Diagnosis Age At Onset No Information Payers Payer name Insurance type Covered republican ID chetna nancyreynaldo(s) D [place] [facility] [id number] Social History Type Description Quantity Date Captured Comments Alcohol Use Details Unknown Caffeine Use Details Unknown Tobacco Use Status No Information Smoking Status Never smoker Non-Smoking Tobacco Use Details : No Details Available : No Details Available Sex Female Chief Complaint And Reason For Visit No Information Reason For Referral Reason For Referral No Information History Of Present Illness Encounter Date Complaint History Of Prese nt Illness dental Functional Status Date Functional Assessmen t No Information Instructions Date Instruction Additional Infor mation No Information Assessments Type Assessment Date No Information Patient Care Teams Name Effective Dates (start - stop) Status Members No Information
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
[2025-07-23 13:26] VITALS: BP 90/62; BMI 27.3
--- OUTSIDE RECORDS SUMMARY | 2025-07-23 16:15 | XMS_ITS | Clinical Summary ---
Author Organization [address] Address [address] [place] [address] Care Team Providers Care Hub Inventory Specialist Name Role Phone Lucio Terry Primary Care Provider [phone] Allergies Active Allergy Reactions Criticality Noted Date [...] 67 02/07/2018 10:11 AM EDT Temperature 36.7 C (98.1 F) 02/07/2018 11:50 AM EDT Respiratory Rate 18 02/07/2018 10:11 AM EDT [...] 10,TDAP once) 2006 Cervical cancer screening 2007 Influenza vaccine 05/31/2025 Covid-19 vaccine series ( - 2023-25 season) 2025 RSV Immunization (1 - 1-dose 75+ series) 2061 Meningococcal B Vaccine Aged Out No l onger eligible based on patient's age to complete this topic Meningococcal Vaccine Aged Out No valentina laura eligible based on patient's age to complete this topic Pneumococcal Vaccine (2 - 49 years) Aged Out No longer eligible based on patient's age to complete this topic Insurance on file D on file D on file MGD on file D on file Care Teams Hub Inventory Specialist Relationship Specialty Start Date End Date Lucio Terry PA [address] [place] [phone] PCP - General 07/29/16
--- OUTSIDE RECORDS SUMMARY | 2025-07-23 16:15 | XMS_ITS | Encounter Summary ---
Author Organization [facility] Care Team Providers Care Senior Research Associate Name Role Phone Lucio Terry Primary Care Provider [phone] Encounter Details Date Type Department Care Team ([facility] Contact Info) Description 06/30/2016 Scanned Document [facility] [address] [place] [address], [address] [place] [address] External, Provider Social History Tobacco Use Types [...] filedocumented in this encounter Care Teams Senior Research Associate Relationship Specialty Start Date End Date Lucio Terry PA [address] [place] [phone] PCP - General 07/29/16 documented as of this encounter
--- OUTSIDE RECORDS SUMMARY | 2025-07-23 16:15 | XMS_ITS | Encounter Summary ---
Author Organization [facility] Address [address] [place] [phone] Care Team Providers Care Real Estate Clerk Name Role Phone Lucio Terry Primary Care Provider [phone] Encounter Details Date Type Department Care Team (Latest Contact Info) Description 08/16/2017 Transcribed [facility] [address] [phone] Lucio Terry PA [address] [facility] [address] [place] [phone] Routine general medical examination at a health [...] Primary documented in this encounter Care Teams Real Estate Clerk Relationship Specialty Start Date End Date Lucio Terry PA [address] [place] [phone] PCP - General 07/29/16 documented as of this encounter
--- OUTSIDE RECORDS SUMMARY | 2025-07-23 16:15 | XMS_ITS | Clinical Summary ---
Author Organization [facility] Address [address] [phone] Care Team Providers Care Label Sewer Name Role Phone Lucio Ojeda Primary Care Provider [phone] Social History Tobacco Use Types Packs/Day Years Used Date Smoking Tobacco: Never Assessed Comments Unknown Sex and Gender Information Value Date Recorded Sex Assigned at Not on file Legal Sex Female 9:10 AM EDT Gender Identity Not on file Sexual Orientation Not on file Plan of Treatment Not on file Insurance [place] Care Teams Label Sewer Relationship Specialty Start Date End Date Lucio Ojeda PA [address] [place] [address] PCP - General Internal Medicine 06/29/17
--- OUTSIDE RECORDS SUMMARY | 2025-07-23 16:15 | XMS_ITS | Encounter Summary ---
Author Organization [facility] Care Team Providers Care Scales Inspector Name Role Phone Lucio Terry Primary Care Provider [phone] Encounter Details Date Type Department Care Team ([facility] Contact Info) Description 06/30/2016 Scanned Document [facility] [address] [place] [address], [address] [place] [address] External, Provider Social History Tobacco Use Types [...] on filedocumented in this encounter Care Teams Scales Inspector Relationship Specialty Start Date End Date Lucio Terry PA [address] [place] [phone] PCP - General 07/29/16 documented as of this encounter
--- OUTSIDE RECORDS SUMMARY | 2025-07-23 16:15 | XMS_ITS | Encounter Summary ---
Author Organization [facility] Address [address] [place] [phone] Care Team Providers Care Lasting Room Supervisor Name Role Phone Lucio Terry Primary Care Provider [phone] Encounter Details Date Type Department Care Team ([facility] st Contact Info) Description 03/24/2021 Orders Only Gynecology [address] [place], [place] [id number] Cyndy Pittman, DO [address] [place] [address] [address] [place] [phone] Social History Tobacco Use Types [...] on filedocumented in this encounter Care Teams Lasting Room Supervisor Relationship Specialty Start Date End Date Lucio Terry PA [address] [place] [phone] PCP - General 07/29/16 documented as of this encounter
--- OUTSIDE RECORDS SUMMARY | 2025-07-23 16:15 | XMS_ITS | Encounter Summary ---
Author Organization [place] [facility] Care Team Providers Care C Developer Name Role Phone Lucio Terry Primary Care Provider [phone] Encounter Details Date Type Department Care Team (Late st Contact Info) Description 06/30/2016 Scanned Document [facility] [address] [place] [address], [address] [place] [address] External, Provider Social History Tobacco Use Types [...] SCAN REPORTS Final Result Performing Organization Address City/[facility] Co de Phone Number [facility] [place], [place] * [place] Result Scan (06/30/2016) us Provider External IMG SCAN REPORTS Final Result [facility] [place] * [place] Result Scan (06/30/2016) us Provider External IMG SCAN REPORTS Final Result Performing Organization Address [facility] Co de Phone Number [facility] * [place] Result Scan (06/30/2016) us Provider External IMG SCAN REPORTS Final Result Performing Organization Address [facility] Co de Phone Number [facility] * Lab Scan (06/30/2016) Blood specimen (specimen) us Provider External LAB BLOOD ORDERABLES Final Res ult Performing Organization Address [facility] Co de Phone Number [facility] documented in this encounter Visit Diagnoses Not on filedocumented in this encounter Care Teams C Developer Relationship Specialty Start Date End Date Lucio Terry PA [address] [place] [phone] PCP - General 07/29/16 documented as of this encounter
== END 2025-07-23 15:17 | disposition home or self-care (01) ==
LOC: HO.HWS 13:12
PROVIDERS: PCP Internal Medicine; Visit Provider Advanced Practice Midwife
DX: Z01.419 Encounter for gynecological examination (general) (routine) without abnormal findings (principal); R10.2 Pelvic and perineal pain; G89.29 Other chronic pain
CPT/HCPCS: 99395; 99459

== ENCOUNTER 2025-08-19 11:51 | Outpatient (REF) | payer OTHER, SELFPAY ==
[2025-08-19 12:09] LABS: MANUAL DIFF FLAG NO
[2025-08-19 12:47] LABS: Alanine Aminotransferase 39 U/L (0-31); Albumin Level 4.8 g/dL (3.5-5.0); Alkaline Phosphatase 39 U/L (39-117); Anion Gap 13 (12-20); Aspartate Amino Transferase 24 U/L (5-31); Blood Urea Nitrogen 11 mg/dL (9-16); Calcium 9.7 mg/dL (8.4-10.2); Carbon Dioxide 22 mmol/L (22-29); Chloride 108 mmol/L (96-108); Cholesterol 207 mg/dL (<200); Estimated Glomerular Filt Rate > 60; HDL Cholesterol 60 mg/dL (>40); Iron 173 mcg/dL (30-160); Percent Iron Saturation 50 % (15-50); Potassium 4.0 mmol/L (3.3-5.1); Sodium 139 mmol/L (135-145); Total Iron Binding Capacity 343 mcg/dL (228-428); Total Protein 7.3 g/dL (6.5-8.0); Triglycerides 224 mg/dL (<150); Unsaturated Iron Binding 170 ug/dL
[2025-08-19 13:02] LABS: Thyroid Stimulating Hormone 0.68 uIU/mL (0.32-4.0)
[2025-08-19 13:13] LABS: Folate 8.8 ng/mL (> or = 4.0); Vitamin B12 556 pg/mL (200-900)
[2025-08-19 14:12] LABS: Hematocrit 41.1 % (37.0-47.0); Hemoglobin 13.7 g/dl (12.0-16.0); Imm Gran Abs Auto 0.01 X10*3/uL (0.00-0.03); Imm Gran Pct Auto 0.1 % (0.0-0.4); Lymphocytes Absolute Auto 1.7 X10*3/uL (1.2-4.9); Mean Corpuscular HGB Conc 33.3 g/dl (31.0-35.0); Mean Corpuscular Hemoglobin 30.6 pg (27.0-33.0); Mean Corpuscular Volume 91.7 fL (80.0-98.0); NRBC Abs Auto 0.000 X10*3/uL (0.0-0.012); NRBC Pct Auto 0.0 /100WBC (0.0-0.2); Platelet Count 255 X10*3/uL (160-400); Red Blood Count 4.48 X10*6/uL (4.20-5.50); White Blood Count 7.3 X10*3/uL (4.8-10.8)
== END 2025-08-19 11:52 | disposition home or self-care (01) ==
LOC: HO.LAB 11:51
PROVIDERS: PCP Internal Medicine; Visit Provider Internal Medicine
DX: Z00.00 Encounter for general adult medical examination without abnormal findings (principal); E05.90 Thyrotoxicosis, unspecified without thyrotoxic crisis or storm; E78.5 Hyperlipidemia, unspecified; D50.9 Iron deficiency anemia, unspecified; E55.9 Vitamin D deficiency, unspecified; E53.8 Deficiency of other specified B group vitamins
CPT/HCPCS: 36415; 80053; 80061; 82306; 82607; 82746; 83540; 84443; 85025